=== PATIENT | male | born 1960 | race Caucasian/White ===

== ENCOUNTER 2019-06-15 11:07 | Inpatient (IN) | payer MEDICARE, SELFPAY ==
[2019-06-15] VITALS (10 sets, daily range): BP systolic 105–167; BP diastolic 52–120; PULSE 86–123; RESP 16–22; TEMP 36.6–37; O2SAT 90–100; BMI 16.2; BMI 23.0; BMI 17.9
--- NOTE | 2019-06-15 11:04 | ECG_ITS ---
APPROVED REPORT Exam: Resting ECG HR:125 bpm ECG Measurements Heart Rate 125 AXES MI 154 P 84 QRSd 70 QRS 72 QT 312 T 76 QTc 450 <Conclusion> Sinus tachycardia Right atrial enlargement Nonspecific ST and T wave abnormality Abnormal ECG Electronically signed by : Isaías Martinez, 06/17/2019 21:01:32
--- NOTE | 2019-06-15 11:14 | CT_ITS ---
PROCEDURE: CT ABDOMEN PELVIS WO CON CLINICAL INDICATION: abd pain Abdominal pain and distension with nausea COMPARISON: No exams were available for comparison TECHNIQUE: Axial images obtained with sagittal and coronal reformats. All CT scans at the facility use one or more dose reduction, viz: automated exposure control, ma/kV adjustment per patient size (including targeted exams where dose is matched to indication, i.e. head), or iterative reconstruction technique. FINDINGS: LOWER THORAX: See chest CT report ABDOMEN & PELVIS: There is marked gastric distension with fluid-filled stomach with an air-fluid level and some hyperdensity in the posterior aspect of the stomach. The there is also severe distension of the duodenum involving the bulb and descending portion of the duodenum and transverse duodenum to the midline of the abdomen. The distal portion of the duodenum, jejunum and small bowel are nondistended. The gallbladder has an unremarkable appearance. The pancreas is compressed by the distended stomach. There is stranding of the fat in the left upper quadrant along the tail the pancreas and superior to the left kidney and along the medial aspect of the spleen. The medial margin of the spleen is somewhat obscured.. No adrenal mass evident. No renal calculi or hydronephrosis. The appendix is not identified. There is a Ansari catheter present within the urinary bladder with thickened bladder wall having some irregular contour. No acute bony anomalies. IMPRESSION: 1. There is marked gastric and duodenal distension to the level of the distal aspect of the 3rd portion of the duodenum as the duodenum passes midline consistent with high-grade obstruction at this area. 2. The pancreas is compressed by the stomach. There is stranding of the fat in the left upper quadrant posterior to the pancreatic tail and superior to the left kidney and along the medial margin of the spleen. Pancreatitis could cause this finding. Underlying infection/inflammation is also consideration. 3. Ansari catheter in place. The urinary bladder wall is somewhat irregularly thickened which may be seen with cystitis or neoplasm. There are multiple unopacified bowel loops in the pelvis which could obscure or mimic pathology. Follow-up exam with IV and oral contrast may provide further evaluation. The Dictated by: Shaggy Alexandre MD 06/15/2019 12:46 Electronically signed by Shaggy Alexandre MD in [facility] 06/15/2019 12:46
--- NOTE | 2019-06-15 11:14 | CT_ITS ---
PROCEDURE: CT CHEST WO CON CLINICAL INDICATION: pain Chest pressure pain and soreness COMPARISON: CT ABDOMEN PELVIS WO CON from 06/15/2019 TECHNIQUE: Axial images obtained with sagittal and coronal reformats. All CT scans at the facility use one or more dose reduction, viz: automated exposure control, ma/kV adjustment per patient size (including targeted exams where dose is matched to indication, i.e. head), or iterative reconstruction technique. FINDINGS: HEART AND MEDIASTINAL STRUCTURES: There are coronary artery calcifications.. There is marked gastric distension. Please see abdomen CT report for further lucent a keyes. There is also moderate distension of the fluid-filled esophagus. No mediastinal or hilar mass or adenopathy. LUNGS AND PLEURAL SPACES: COPD with scattered areas of scarring with centrilobular emphysema. Irregular opacities are present in the lung apices, left upper lobe posteriorly in the subpleural region, and in the left lower lobe posterior medially. There is some linear density in the distal trachea which could be due to some mucous. No lobar consolidation or collapse. 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 UPPER ABDOMEN: See abdomen report ADDITIONAL FINDINGS: No other significant abnormalities. IMPRESSION: 1. COPD with centrilobular emphysema and scattered areas of scarring/pulmonary fibrotic changes. 2. Linear transverse density in the distal esophagus possibly related to a strand of mucous 3. Severe gastric distension along with fluid-filled distended esophagus. Dictated by: Shaggy Alexandre MD 06/15/2019 12:38 Electronically signed by Shaggy Alexandre MD in [facility] 06/15/2019 12:38
[2019-06-15 11:33] LABS: Chloride 88 mmol/L (98-107); Sodium 136 mmol/L (136-145)
[2019-06-15 11:34] LABS: Potassium 3.3 mmoL/L (3.5-5.1)
[2019-06-15 11:36] LABS: Alanine Aminotransferase 29 U/L (12-78); Alkaline Phosphatase 87 U/L (38-126); Amylase 279 U/L (30-110); Anion Gap 25.3 mEq/L (5-15); Aspartate Amino Transferase 34 U/L (17-59); Bilirubin,Total 0.5 mg/dl (0.2-1.3); Blood Urea Nitrogen 38 mg/dl (9-20); Calcium 10.2 mg/dl (8.4-10.2); Carbon Dioxide 26 mmol/L (22.0-30.0); Creatinine Clearance Estimated 26 mL/min (50-200); Estimated Glomerular Filt Rate 26 ml/min (>60); GFR (African American) 31 ML/MIN (>60); Glucose 231 mg/dl (74-100)
[2019-06-15 11:37] LABS: Albumin Level 5.1 g/dl (3.5-5.0); Albumin/Globulin Ratio 1.5 (1.1-1.8); Globulin 3.5 g/dL (1.3-3.2); Total Protein,Serum 8.6 g/dl (6.3-8.2)
[2019-06-15 11:39] LABS: Basophils # 0.1 K/mm3 (0-0.2); Basophils % 0.4 % (0.1-2.0); Eosinophils # 0.2 K/mm3 (0.0-0.4); Eosinophils % 0.9 % (0.1-12.0); Ethyl Alcohol < 10 mg/dl (0-10); Hematocrit 40.7 % (42.0-52.0); Hemoglobin 13.6 g/dL (14.1-18.0); Lymphocytes % 5.7 % (10-50); Mean Corpuscular HGB Conc 33.5 g/dL (31.8-35.4); Mean Corpuscular Hemoglobin 35.6 pg (27.0-31.2); Mean Corpuscular Volume 106.3 fl (80-94); Mean Platelet Volume 9.6 fl (7.4-10.4); Monocytes # 0.9 K/mm3 (0.1-1.0); Monocytes % 5.1 % (1.7-9.3); Neutrophils # 15.3 K/mm3 (1.8-7.8); Neutrophils % 87.9 % (37.0-80.0); Platelet Count 329 K/mm3 (142-424); Red Blood Count 3.83 M/mm3 (4.60-6.20); Red Cell Distribution Width 13.2 % (11.5-17.5); White Blood Count 17.4 K/mm3 (4.8-10.8)
[2019-06-15 11:40] LABS: Lactic Acid 4.5 mmol/L (0.7-2.1)
--- NOTE | 2019-06-15 11:40 | PC.NURSE ---
NOTIFIED OF PT MEETING CRITERIA FOR SEPTIC SHOCK, STATED TO INITIATE FLUID BOLUS
[2019-06-15 11:42] LABS: C-Reactive Protein 4.2 mg/L (0-4)
[2019-06-15 11:43] LABS: MANUAL DIFFERENTIAL MANUAL DIFFERENTIAL (MANUAL DIFF)
[2019-06-15 11:44] LABS: Lipase 2371 U/L (23-300)
[2019-06-15 11:49] LABS: Microscopic, Urine URINE MICROSCOPIC (MICROSCOPIC)
[2019-06-15 11:51] LABS: Troponin I 0.02 ng/ml (0.00-0.034)
[2019-06-15 11:51] LABS: Appearance,Urine SL CLOUDY (Clear); Blood, Urine Negative (Negative); Color,Urine YELLOW (Yellow); Glucose,Urine (UA) Negative (Negative); Ketones,Urine Negative (Negative); Leukocyte Esterase,Urine Negative (Negative); Nitrate,Urine Negative (Negative); PH,Urine 5.5 (5.0-8.5); Protein,Urine 2+ (Negative); Specific Gravity, Urine >= 1.030 (1.005-1.030); Urobilinogen,Urine 0.2 EU/dl (0.2)
[2019-06-15 11:55] LABS: Lymphocytes % 7 % (10-50); Monocytes % 8 % (2-9); Neutrophils % 85 % (42-76); Total Cells Counted 100
[2019-06-15 11:56] LABS: Macrocytosis 2+
[2019-06-15 11:58] LABS: Anisocytosis 2+; Platelet Estimate Normal
[2019-06-15 12:01] LABS: Erythrocyte Sedimentation Rate 11 mm/hr (0-20)
[2019-06-15 12:02] LABS: Amphetamine/Metha Screen,Urine Negative ng/ml (<1000)
[2019-06-15 12:03] LABS: Barbiturates Screen,Urine Positive ng/ml (<200); Benzodiazepines Screen,Urine Negative ng/ml (<200)
--- NOTE | 2019-06-15 12:03 | HMH.EDABDPAI ---
ED Disposition Clinical Impression: Acute pancreatitis, Sepsis, Abdominal pain Disposition: Admitted As Inpatient Condition on Discharge: Good Instructions: DI for Acute Abdomen Referrals: Tereso Grant [Primary Care Provider] - - Critical Care Critical Care Time: Yes (20) Attestation: On 06/15/19, the high probability of a clinically significant, sudden or life threatening deterioration of the following system(s) required my full and direct attention, intervention and personal management. The time I documented below is in addition to time spent performing reported procedures but includes the following listed in this critical care notation. Total Critical Care Time: 20 Vital system(s) involved:: Shock (Septic) My critical care processes included: Assessment & monitoring of V/S, Initial and Re-exams, Data Review/Interpretation, Coordinating Care, Medication Orders and management, Documentation Medical Decision Making - Medical Records Medical records reviewed: Yes: I reviewed the patient's medical records. - Chris Inquiry Pt receiving controlled substance: No Vital Signs: 06/15/19 11:08 06/15/19 11:38 06/15/19 12:38 Temperature 98.0 F Temperature Source Oral Pulse Rate [Right Radial] 113 H 113 H 119 H Respiratory Rate 18 22 22 Blood Pressure [Right Arm] 135/98 H 136/115 H 154/104 H Blood Pressure Mean [Right Arm] 110 122 120 Blood Pressure Source [Right Arm] Automatic Cuff Automatic Cuff Automatic Cuff Blood Pressure Position [Right Arm] Sitting Sitting Sitting 02 Sat by Pulse Oximetry 96 96 100 Oxygen Delivery Method Room Air Room Air 06/15/19 13:14 Temperature Temperature Source Pulse Rate [Right Radial] 123 H Respiratory Rate 20 Blood Pressure [Right Arm] 167/120 H Blood Pressure Mean [Right Arm] 135 Blood Pressure Source [Right Arm] Automatic Cuff Blood Pressure Position [Right Arm] Sitting 02 Sat by Pulse Oximetry 96 Oxygen Delivery Method - Lab Data Lab results reviewed: Yes: I reviewed the patient's lab results. Lab Results 06/15/19 11:15: WBC 17.4 H, RBC 3.83 L, Hgb 13.6 L, Hct 40.7 L, MCV 106.3 H, MCH 35.6 H, MCHC 33.5, RDW 13.2, Plt Count 329, MPV 9.6, Neut % (Auto) 87.9 H, Lymph % (Auto) 5.7 L, Dawson % (Auto) 5.1, Eos % (Auto) 0.9, Baso % (Auto) 0.4, Neut # (Auto) 15.3 H, Lymph # (Auto) 1.0, Dawson # (Auto) 0.9, Eos # (Auto) 0.2, Baso # (Auto) 0.1, Total Counted 100, Neutrophils % (Manual) 85 H, Lymphocytes % (Manual) 7 L, Monocytes % (Manual) 8, Platelet Estimate Normal, RBC Morphology Not Reportable, Anisocytosis 2+, Macrocytosis 2+, ESR 11 06/15/19 11:15: Sodium 136, Potassium 3.3 L, Chloride 88 L, Carbon Dioxide 26, Anion Gap 25.3 H, BUN 38 H, Creatinine 2.60 H, Estimated Creat Clear 26, Estimated GFR 26 L, Est GFR ( Amer) 31 L, Glucose 231 H, Calcium 10.2, Total Bilirubin 0.5, AST 34, ALT 29, Alkaline Phosphatase 87, Troponin I 0.02, C-Reactive Protein 4.2 H, Total Protein 8.6 H, Albumin 5.1 H, Globulin 3.5 H, Albumin/Globulin Ratio 1.5, Amylase 279 H, Lipase 2371 H 06/15/19 11:15: Lactate 4.5 H 06/15/19 11:15: Plasma/Serum Alcohol < 10 06/15/19 11:40: Urine Color Yellow, Urine Appearance Sl cloudy, Urine pH 5.5, Ur Specific [place] >= 1.030, Urine Protein 2+, Urine Glucose (UA) Negative, Urine Ketones Negative, Urine Blood Negative, Urine Nitrate Negative, Urine Bilirubin Negative, Urine Urobilinogen 0.2, Ur Leukocyte Esterase Negative, Urine RBC None, Urine WBC Occasional, Ur Squamous Epith Cells Occasional, Amorphous Sediment 1+, Urine Bacteria Trace, Hyaline Casts 3-5 06/15/19 11:40: Urine Opiates Screen Negative, Urine Methadone Screen Negative, Ur Barbituates Screen Positive H, Ur Phencyclidine Scrn Negative, Ur Amphetamines Screen Negative, U Benzodiazepines Scrn Negative, Urine Cocaine Screen Negative, U Marijuana (THC) Screen Negative Result diagrams: 06/15/19 11:15 06/15/19 11:15 Orders (Tests/Meds): ED MEDICATIONS Generic Name Dose Route Start Last Admin Trade
[2019-06-15 12:04] LABS: Cannabinoid Screen,Urine Negative ng/ml (<50)
[2019-06-15 12:05] LABS: Cocaine Screen,Urine Negative ng/ml (<300); Methadone Screen,Urine Negative ng/ml (<300)
[2019-06-15 12:06] LABS: Opiate Screen,Urine Negative ng/ml (<300); Phencyclidine Screen,Urine Negative ng/ml (<25)
[2019-06-15 12:08] LABS: Bilirubin,Urine Negative (Negative)
[2019-06-15 12:13] LABS: Amorphous Sediment,Urine 1+ /lpf; Bacteria,Urine Trace /lpf; Squamous Epithelial Cell,Urine Occasional #/hpf (0-5); WBC,Urine Occasional #/hpf (0-3)
--- NOTE | 2019-06-15 13:06 | XR_ITS ---
PROCEDURE: XR CHEST AP CLINICAL HISTORY: NG PLACEMENT Gastric distension COMPARISON: CT ABDOMEN PELVIS WO CON from 06/15/2019 CT CHEST WO CON from 06/15/2019 FINDINGS: The cardiomediastinal silhouette and pulmonary vascularity are within normal limits. COPD with fibrotic changes. Old right sided rib fractures Nasogastric tube has been inserted. The tip is in good position in the region of the body of the stomach. IMPRESSION: NG tube tip in good position in the region of the body of the stomach Dictated by: Shaggy Alexandre MD 06/15/2019 13:21 Electronically signed by Shaggy Alexandre MD in [place] 06/15/2019 13:21
--- NOTE | 2019-06-15 13:09 | PC.NURSE ---
Sepsis bolus complete at this time
--- NOTE | 2019-06-15 13:40 | PC.NURSE ---
CALLED CHARGE NURSE FOR BED ASSIGNMENT. PATIENT WILL BE ADMITTED TO ROOM 203. ER STAFF NOTIFIED AT THIS TIME
--- NOTE | 2019-06-15 14:18 | PC.NURSE ---
MD SPEAKING WITH DR BASS, SURGEON [employer] D[employer], AT THIS TIME.
--- NOTE | 2019-06-15 14:20 | PC.NURSE ---
Dr Elias on with Dr bell
--- NOTE | 2019-06-15 14:29 | PC.NURSE ---
Dr Elias speaking with Dr Paige.
--- NOTE | 2019-06-15 15:01 | XR_ITS ---
PROCEDURE: XR CHEST AP CLINICAL HISTORY: resert ng NG tube placement COMPARISON: XR CHEST AP from 06/15/2019 CT CHEST WO CON from 06/15/2019 FINDINGS: NG tube tip is in the region of the body of the stomach. IMPRESSION: NG tube tip in the region of the body of the stomach Dictated by: Shaggy Alexandre MD 06/15/2019 15:40 Electronically signed by Shaggy Alexandre MD in [facility] 06/15/2019 15:40
[2019-06-15 15:27] LABS: Reflex Lactic Add Lactic Reflex
[2019-06-15 15:54] LABS: Lactic Acid Follow Up (RFLX 1) 1.1 mmol/L (0.7-2.1)
[2019-06-15 16:04] LABS: Troponin I 0.03 ng/ml (0.00-0.034)
--- NOTE | 2019-06-15 17:57 | PC.NURSE ---
Pt was a new admit from the ER this shift. 16 F NG tube located in LT nare noted to be 65 and attached to continuous low wall suction. 16 F F/C patent and draining at bedside. Pt has had complaints of nausea and pain since arrival to the unit. Pt was medicated with Zofran and Dilaudid per MAR and has had favorable results. IV sites are as follows: 18 G LT forearm with NS infusing @ 125ML/HR, 20 G RT AC, 20 G LT AC. Call light within reach. Will continue to monitor.
--- NOTE | 2019-06-16 02:53 | PC.NURSE ---
Pt presently sleeping, mentioned several times he wished he brought his home meds, because I'd be sleeping right now if I did. Discussed using home meds under certain restrictions being observation and pt voiced understanding of not using home meds, however he spoke of it again. I advised, no home meds are needed for this hospitalization and don't ask anyone to bring them because we would have to ask them to take them back home. Advised speaking to PCP concerning reordering home meds. Diluadid given x 2 thus far, pt ask tech about getting more pain meds, I went in to discuss pain med but found pt sleeping. NG with dark gastric fluids noted, abrams cath patent and draining to bedside by gravity with clear, yellow urine noted. Vital signs stable and remains afebrile, monitoring continues.
[2019-06-16 03:45] VITALS: BP 153/84; PULSE 82; RESP 17; TEMP 36.8; O2SAT 92
[2019-06-16 05:03] VITALS: BMI 17.9
[2019-06-16 07:22] LABS: Basophils % 0.1 % (0.1-2.0); Eosinophils # 0.1 K/mm3 (0.0-0.4); Eosinophils % 0.4 % (0.1-12.0); Hematocrit 29.8 % (42.0-52.0); Lymphocytes # 1.2 K/mm3 (0.7-4.5); Lymphocytes % 10.1 % (10-50); Mean Corpuscular Hemoglobin 34.5 pg (27.0-31.2); Mean Corpuscular Volume 104.7 fl (80-94); Mean Platelet Volume 8.8 fl (7.4-10.4); Monocytes # 0.9 K/mm3 (0.1-1.0); Monocytes % 7.2 % (1.7-9.3); Neutrophils # 9.9 K/mm3 (1.8-7.8); Neutrophils % 82.3 % (37.0-80.0); Platelet Count 230 K/mm3 (142-424); Red Blood Count 2.84 M/mm3 (4.60-6.20); Red Cell Distribution Width 13.2 % (11.5-17.5); White Blood Count 12.1 K/mm3 (4.8-10.8)
[2019-06-16 07:29] LABS: Alanine Aminotransferase 11 U/L (12-78); Albumin Level 3.4 g/dl (3.5-5.0); Albumin/Globulin Ratio 1.4 (1.1-1.8); Alkaline Phosphatase 50 U/L (38-126); Anion Gap 8.9 mEq/L (5-15); Aspartate Amino Transferase 26 U/L (17-59); Bilirubin,Total 0.2 mg/dl (0.2-1.3); Blood Urea Nitrogen 33 mg/dl (9-20); Carbon Dioxide 27 mmol/L (22.0-30.0); Chloride 103 mmol/L (98-107); Creatinine Clearance Estimated 46 mL/min (50-200); Estimated Glomerular Filt Rate 57 ml/min (>60); GFR (African American) 69 ML/MIN (>60); Globulin 2.4 g/dL (1.3-3.2); Glucose 84 mg/dl (74-100); Lipase 216 U/L (23-300); Sodium 136 mmol/L (136-145); Total Protein,Serum 5.8 g/dl (6.3-8.2)
[2019-06-16 07:31] LABS: Potassium 2.9 mmoL/L (3.5-5.1)
[2019-06-16 07:32] LABS: Calcium 8.5 mg/dl (8.4-10.2)
[2019-06-16 07:38] VITALS: BP 134/66; PULSE 66; RESP 20; TEMP 37.4; O2SAT 96
[2019-06-16 09:12] VITALS: PULSE 66; RESP 20; O2SAT 96
--- NOTE | 2019-06-16 09:31 | P.CONPHA_ITS ---
[facility] Pharmacy VTE Monitoring - Patient Demographics Admission date: 06/15/19 Report Date: 06/16/19 Time: 09:31 Allergies/Adverse Reactions: Patient Allergies diphenhydramine [From Benadryl] Allergy (Verified 06/15/19 11:13) Height: 1.7 m Weight: 51.71 kg Patient Problems: Current Active Problems Acute pancreatitis (Acute) Sepsis (Acute) Abdominal pain (Acute) - VTE Risk Labs: VTE Related Lab Results Hgb 10.0 g/dL (14.1-18.0) L D 06/16/19 07:08 Hct 29.8 % (42.0-52.0) L 06/16/19 07:08 Plt Count 230 K/mm3 (142-424) D 06/16/19 07:08 BUN 33 mg/dl (9-20) H 06/16/19 07:08 Creatinine 1.30 mg/dl (0.66-1.25) H D 06/16/19 07:08 Estimated Creat Clear 46 mL/min (50-200) 06/16/19 07:08 Was VTE Risk Assessment Performed: Yes VTE Score: 2 VTE Risk Level: Very Low Risk - Prophylaxis VTE Prophylaxis Ordered?: Yes Types of VTE Prophylaxis: TEDS Knee High Location of Applied Device: Bilateral Lower Extremeties
--- NOTE | 2019-06-16 09:46 | HMH.HP ---
*Admission Date: 06/15/19 *Chief complaint: Abdominal pain *History of present illness: Mr. Renae is a 58-year-old white male who presented to the emergency room yesterday with a 3 to 4-day history of progressively worsening abdominal pain, abdominal distention with nausea and vomiting. It was initially thought to have an acute abdomen. His amylase and lipase was elevated. Urgent CT scan showed stranding around the tail the pancreas consistent with some pancreatitis but the more impressive finding was marked distention of his stomach with apparent obstruction in the mid duodenum. An NG tube was placed in the emergency room with return of proximately 6 L of gastric contents which markedly relieved his symptoms. Additional pertinent findings on his labs showed an elevated white count of 17,000. BUN and creatinine were elevated. Lactic acid was 4.5. Glucose was elevated at 213. His chest x-ray showed some chronic changes consistent with COPD and evidence of several old rib fractures on the right. He was admitted with continuous NG drainage to low wall suction, IV fluid hydration, pain management and surgical consultation. At the time of my exam this morning, he is more comfortable but still having mid and upper abdominal pain. He has had no bowel movement. He has no history of GI problems but does note he takes Prilosec at home and is not sure why. No history of ulcer disease. No recent weight loss. Mr. Renae lives in [facility] and was visiting with his sister in [place] when his symptoms started. He is disabled from chronic back pain. He has a history of chronic headaches and anxiety. [facility] History Medical History: Reports:: Anxiety, Gastroesophageal Reflux Disease(GERD), Lung Disease (COPD) Denies:: Cancer, Diabetes Mellitus Type 1, Diabetes Mellitus Type 2, Gastrointestinal Bleed, MRSA, Renal Insufficiency *Have you ever received a pneumonia vaccine?: No *Have you received a flu vaccine this season?: No Other Medical History: Reports: Arthritis, Other (Chronic back pain, chronic headache syndrome) Other Surgeries: Yes: No Previous Surgery Amputation: No Fractures: No - *Social History Educational Level: Completed High School Smoking Status: Current every day smoker Tobacco Type: cigarettes # Packs/Day (cigarettes): 1 Alcohol Intake: current Alcohol Intake Frequency:: holidays/special occasions only *Occupational Status:: disabled (Work-related back injury) Housing: house Household Members: family *Travel in the last 8 weeks: None Family Hx:: Heart Attack, Hypertension Review of Systems - Constitutional Denies body ache(s), Denies chills - Eyes Denies change in vision - ENT Denies difficulty swallowing - *Cardiovascular Denies chest pain with activity, Denies shortness of breath, Denies rapid, pounding, or irregular heartbeat - *Respiratory Reports cough, Reports coughing up blood, Denies shortness of breath - *Gastrointestinal Reports other (See HPI) - *Genitourinary Denies difficulty urinating, Denies painful urination, Denies blood in urine - *Musculoskeletal Reports other (Chronic back pain) - Integumentary/Breasts Denies yellowing of the skin - *Neurologic Reports headache(s) (Chronic), Denies dizziness - Psychiatric Reports anxiety - Endocrine Denies increased thirst, Denies increased urination - Hematologic/Lymphatic Denies easy bruising Meds Home Medications Medication Instructions Recorded Confirmed Type Acetaminophen [Tylenol 325mg 650 mg PO NEEDED PRN 06/15/19 06/15/19 History Tablet] Buprenorphine HCl/Naloxone HCl 1 each SL BID 06/15/19 06/15/19 History [Suboxone 2 mg-0.5 mg Sl Film] Butalbital/Aspirin/Caffeine 1 each PO DAILY 06/15/19 06/15/19 History [Fiorinal 50-325-40 mg Capsule] Fluvoxamine Maleate 100 mg PO DAILY 06/15/19 06/15/19 History Ibuprofen [Motrin 800mg Tab] 800 mg PO Q6HP PRN 06/15/19 06/15/19 History LORazepam [Lorazepam 1mg Tablet] 1 m
--- NOTE | 2019-06-16 11:45 | HMH.PHAINT ---
HOME MEDICATIONS RECONCILED FROM FILL LIST FROM [facility]. VERIFIED SUBOXONE DOSE WITH [facility] IN [place]. PRESCRIBER: RON PAN [phone]
[2019-06-16 15:52] VITALS: BP 157/87; PULSE 65; RESP 16; TEMP 36.9; O2SAT 97
[2019-06-16 16:48] LABS: Potassium 3.5 mmoL/L (3.5-5.1)
--- NOTE | 2019-06-16 16:57 | PC.NURSE ---
Pt has been pleasant and cooperative this shift. Pt has received 2 runs of IV Potassium this shift due to critically low Potassium result this AM. 16 F NG tube located in LT nare noted to be at 65 and attached to continuous low wall suction. 16 F F/C patent and draining at bedside. Pt has had complaints of nausea and pain this shift and was medicated with Zofran and Dilaudid per MAR with favorable results. IV sites are as follows: 18 G LT forearm with NS 40 K+ infusing @ 100 ML/HR, 20 G RT AC, 20 G LT AC. VSS. Call light within reach. Will continue to monitor.
[2019-06-16 20:00] VITALS: BP 159/85; PULSE 65; RESP 17; TEMP 36.7; O2SAT 98
--- NOTE | 2019-06-16 20:18 | HMH.GSCON ---
*Admission Date: 06/15/19 *Reason for consult:: Pancreatitis. Abdominal pain. High-grade bowel obstruction. *History of present illness: Mr. Renae is a 58-year-old male that presents to [facility] with complaints of nausea and acute onset abdominal pain. Abdominal distention noted. No significant emesis. Bowel movement reported in the past 48 hours. Continues to pass flatus. Presented to [facility] ED; CT completed demonstrated marked gastric distention and proximal duodenal distention without clear lesion contributing to obstruction. Nasogastric tube placed with over 6 L of output in a relatively short period of time. Patient presented with positive indicators of SIRS; tachycardia, tachypnea, elevated WBC. Patient reported significant improvement after nasogastric decompression. Admitted for further observation. Additional imaging has included CT Chest with findings consistent of COPD/emphysema. No free air. No free fluid. Additional chest x-ray today as demonstrated similar findings and without pneumoperitoneum. WBC has improved from 17,000-12,000. Initially elevated lipase has returned to normal. Patient laboratory findings include lactic acidosis that has now resolved and YAZMIN showing improvement. Mr. Renae reports a relatively unremarkable medical history. No prior hospitalizations. Primary medical problem is chronic back pain from work-related injury that has left him disabled and unable to maintain employment. No prior abdominal surgery, however, Mr. Del Rosario indicates that he has had esophageal dilation in the past. Overall, no weight loss. No fever or chills. Does report early satiety in the past year with modification of his diet and food intake to be mostly in the evening. Satiety improves with laying flat. No emesis of undigested food. No other complaints. Review of Systems - Review of Systems Review of systems:: pertinent systems reviewed and negative unless documented below - Constitutional Reports daytime sleepiness, Reports lack of energy - *Gastrointestinal Reports feeling full early - *Musculoskeletal Reports joint pain, Reports back pain, Reports muscle weakness, Reports neck pain - *Neurologic Reports headache(s) (Chronic), Denies dizziness [facility] History Medical History: Reports:: Anxiety, Gastroesophageal Reflux Disease(GERD), Hypertension, Lung Disease (COPD) Denies:: Cancer, Diabetes Mellitus Type 1, Diabetes Mellitus Type 2, Gastrointestinal Bleed, MRSA, Renal Insufficiency *Have you ever received a pneumonia vaccine?: No *Have you received a flu vaccine this season?: No Other Medical History: Reports: Anemia, Arthritis, Other (Chronic back pain, chronic headache syndrome) Other Surgeries: Yes: No Previous Surgery Amputation: No Fractures: No - *Social History Educational Level: Completed High School Smoking Status: Current every day smoker Tobacco Type: cigarettes # Packs/Day (cigarettes): 1 Alcohol Intake: current Alcohol Intake Frequency:: holidays/special occasions only *Occupational Status:: disabled (Work-related back injury) Housing: house Household Members: family *Travel in the last 8 weeks: None - Psychiatric History Pschychiatric History:: Reports:: Anxiety Family Hx:: Heart Attack, Hypertension Meds Home Medications Medication Instructions Recorded Confirmed Type Acetaminophen [Tylenol 325mg 650 mg PO NEEDED PRN 06/15/19 06/15/19 History Tablet] Butalbital/Aspirin/Caffeine 1 - 2 tab PO Q6HP PRN 06/15/19 06/16/19 History [Fiorinal 50-325-40 mg Capsule] Fluvoxamine Maleate 150 mg PO DAILY 06/15/19 06/16/19 History Ibuprofen [Motrin 800mg Tab] 800 mg PO TID PRN 06/15/19 06/16/19 History LORazepam [Lorazepam 1mg Tablet] 1 mg PO Q4HP PRN 06/15/19 06/16/19 History Omeprazole [Omeprazole 40mg 40 mg PO DAILY 06/15/19 06/15/19 History Capsule] Topiramate [Topamax 100mg tablet] 200 mg PO BID 06/15/19 06/16/19 History Bupren
[2019-06-17] VITALS (19 sets, daily range): BP systolic 135–188; BP diastolic 65–93; PULSE 48–64; RESP 16–20; TEMP 36.7–37.4; O2SAT 93–100; BMI 17.9
--- NOTE | 2019-06-17 06:06 | PC.NURSE ---
Pt requested PRN pain medication 4 times this shift. PRN lorazepam given per request with pt sleeping a couple hours thereafter. Dr Montalvo in to see pt, allowed popsicles and ice chips until midnight then NPO. Pt enjoyed several popsicles reporting it helped his throat to not hurt so much. Intermittent sleep, dozing off several times following med administration. Encouraged pt to get oob, however pt did not wish to, but reported he would be getting up today because if he didn't wouldn't be able to move at all. Vital signs stable, afebrile. Both AC IV's leaked and were removed. #18 in LFA infusing well with no problems. Pt spoke with family on phone several times last night. Removed PARVEEN hose per pt request, reporting hurting his legs. Pt is anxious to have tests or whatever is going to happen today, reports anxious to get NG tube out and get back to normal. Remained safe, call light w/i reach, monitoring continues.
[2019-06-17 06:12] LABS: Basophils % 0.1 % (0.1-2.0); Eosinophils % 0.3 % (0.1-12.0); Hematocrit 31.1 % (42.0-52.0); Hemoglobin 10.3 g/dL (14.1-18.0); Lymphocytes # 1.8 K/mm3 (0.7-4.5); Lymphocytes % 14.4 % (10-50); Mean Corpuscular HGB Conc 33.1 g/dL (31.8-35.4); Mean Corpuscular Hemoglobin 34.9 pg (27.0-31.2); Mean Corpuscular Volume 105.4 fl (80-94); Mean Platelet Volume 9.2 fl (7.4-10.4); Monocytes # 0.9 K/mm3 (0.1-1.0); Monocytes % 7.3 % (1.7-9.3); Neutrophils # 9.5 K/mm3 (1.8-7.8); Neutrophils % 77.8 % (37.0-80.0); Platelet Count 232 K/mm3 (142-424); Red Blood Count 2.95 M/mm3 (4.60-6.20); Red Cell Distribution Width 13.1 % (11.5-17.5); White Blood Count 12.2 K/mm3 (4.8-10.8)
[2019-06-17 06:28] LABS: Chloride 109 mmol/L (98-107); Potassium 3.4 mmoL/L (3.5-5.1); Sodium 139 mmol/L (136-145)
[2019-06-17 06:31] LABS: Anion Gap 9.4 mEq/L (5-15); Blood Urea Nitrogen 26 mg/dl (9-20); Calcium 8.7 mg/dl (8.4-10.2); Carbon Dioxide 24 mmol/L (22.0-30.0); Creatinine Clearance Estimated 60 mL/min (50-200); Estimated Glomerular Filt Rate 77 ml/min (>60); GFR (African American) 94 ML/MIN (>60); Glucose 56 mg/dl (74-100)
--- NOTE | 2019-06-17 08:37 | P.PN_ITS ---
Subjective Patient reports: no new complaints Exam Vital signs and Labs for Last 24 Hours: Temp Pulse Resp BP Pulse Ox 98.5 F 50 L 16 150/71 H 99 06/17/19 08:00 06/17/19 08:00 06/17/19 08:00 06/17/19 08:00 06/17/19 08:00 Laboratory Results - last 24 hr 06/16/19 16:30: Potassium 3.5 D 06/17/19 05:46: WBC 12.2 H, RBC 2.95 L, Hgb 10.3 L, Hct 31.1 L, MCV 105.4 H, MCH 34.9 H, MCHC 33.1, RDW 13.1, Plt Count 232, MPV 9.2, Neut % (Auto) 77.8, Lymph % (Auto) 14.4, [place] % (Auto) 7.3, Eos % (Auto) 0.3, Baso % (Auto) 0.1, Neut # (Auto) 9.5 H, Lymph # (Auto) 1.8, [place] # (Auto) 0.9, Eos # (Auto) 0.0, Baso # (Auto) 0.0 06/17/19 05:46: Sodium 139, Potassium 3.4 L, Chloride 109 H, Carbon Dioxide 24, Anion Gap 9.4, BUN 26 H, Creatinine 1.00 D, Estimated Creat Clear 60, Estimated GFR 77, Est GFR ( Amer) 94 D, Glucose 56 L D, Calcium 8.7 I & O for Last 24 hours: Intake & Output 06/14/19 06/15/19 06/16/19 06/17/19 11:59 11:59 11:59 11:59 Intake Total 4070 / 4070 2791 / 2791 Output Total 1250 / 1250 2100 / 2100 Balance 2820 / 2820 691 / 691 Weight 130 lb 114 lb 113 lb 15.664 oz - *Routine Abdominal Exam Present: soft. Absent: tenderness Progress Note: A&P (1) Acute abdominal pain Status: Acute Current Visit: Yes (2) Acute pancreatitis Status: Acute Current Visit: Yes (3) Duodenal obstruction Status: Acute Assessment and plan: Plan for EGD today. Current Visit: Yes (4) Acute renal insufficiency Status: Acute Current Visit: Yes (5) Hypokalemia Status: Acute Current Visit: Yes (6) COPD (chronic obstructive pulmonary disease) Status: Acute Current Visit: Yes (7) Tobacco abuse Status: Acute Current Visit: Yes (8) Chronic back pain Status: Acute Current Visit: Yes (9) Chronic mixed headache syndrome Status: Acute Current Visit: Yes (10) Anxiety disorder Status: Acute Current Visit: Yes
--- NOTE | 2019-06-17 09:08 | HMH.ACPN2 ---
<Anisha Mohan - Last Filed: 06/17/19 09:08> Internal Medicine - PN: Subj *Date: 06/17/19 *Time: 09:08 Interval history: Patient states he was able to sleep a little last night. He enjoyed the popsicles. He has had significant NG drainage. He has had some nausea but no vomiting. He states that abdominal pain is better. He still continues with a Ansari catheter to bedside drainage. He is currently n.p.o. for possible EGD this morning. He denies chest pain and shortness of breath. Laboratory data this morning shows a white blood cell count of 12,200 with a hemoglobin of 10.3 and hematocrit of 31.1. Blood chemistries show improved potassium at 3.4. Renal function has improved. Exam Vital signs and Labs for Last 24 Hours: Temp Pulse Resp BP Pulse Ox 98.5 F 50 L 16 150/71 H 99 06/17/19 08:00 06/17/19 08:00 06/17/19 08:00 06/17/19 08:00 06/17/19 08:00 Laboratory Results - last 24 hr 06/16/19 16:30: Potassium 3.5 D 06/17/19 05:46: WBC 12.2 H, RBC 2.95 L, Hgb 10.3 L, Hct 31.1 L, MCV 105.4 H, MCH 34.9 H, MCHC 33.1, RDW 13.1, Plt Count 232, MPV 9.2, Neut % (Auto) 77.8, Lymph % (Auto) 14.4, [place] % (Auto) 7.3, Eos % (Auto) 0.3, Baso % (Auto) 0.1, Neut # (Auto) 9.5 H, Lymph # (Auto) 1.8, [place] # (Auto) 0.9, Eos # (Auto) 0.0, Baso # (Auto) 0.0 06/17/19 05:46: Sodium 139, Potassium 3.4 L, Chloride 109 H, Carbon Dioxide 24, Anion Gap 9.4, BUN 26 H, Creatinine 1.00 D, Estimated Creat Clear 60, Estimated GFR 77, Est GFR ( Amer) 94 D, Glucose 56 L D, Calcium 8.7 I & O for Last 24 hours: Intake & Output 06/14/19 06/15/19 06/16/19 06/17/19 11:59 11:59 11:59 11:59 Intake Total 4070 / 4070 2791 / 2791 Output Total 1250 / 1250 2099 / 2099 Balance 2820 / 2820 691 / 691 Weight 130 lb 114 lb 113 lb 15.664 oz - Constitutional no acute distress, thin, chronically ill appearing - *Routine Respiratory Exam Present: CTA bilaterally (Anteriorly and posteriorly) - *Routine Cardiovascular Exam Present: RRR - *Routine Abdominal Exam Present: soft, tenderness (Upper quads). Absent: normoactive bowel sounds, distended, guarding Comments: Very diminished bowel sounds. NGT to low wall suction. - *Routine Extremities Exam Absent: edema, calf tenderness - *Routine Neurological Exam Present: alert, oriented X3 Assessment and Plan (1) Acute abdominal pain Current visit: Yes Status: Acute Category: Medical Code(s): R10.9 - Unspecified abdominal pain (2) Acute pancreatitis Current visit: Yes Status: Acute Category: Medical Code(s): K85.90 - Acute pancreatitis without necrosis or infection, unspecified (3) Duodenal obstruction Current visit: Yes Status: Acute Category: Medical Code(s): K31.5 - Obstruction of duodenum (4) Acute renal insufficiency Current visit: Yes Status: Acute Category: Medical Code(s): N28.9 - Disorder of kidney and ureter, unspecified (5) Hypokalemia Current visit: Yes Status: Acute Category: Medical Code(s): E87.6 - Hypokalemia (6) COPD (chronic obstructive pulmonary disease) Current visit: Yes Status: Acute Category: Medical Code(s): J44.9 - Chronic obstructive pulmonary disease, unspecified (7) Tobacco abuse Current visit: Yes Status: Acute Category: Medical Code(s): Z72.0 - Tobacco use (8) Chronic back pain Current visit: Yes Status: Acute Category: Medical Code(s): M54.9 - Dorsalgia, unspecified; G89.29 - Other chronic pain (9) Chronic mixed headache syndrome Current visit: Yes Status: Acute Category: Medical Code(s): G44.89 - Other headache syndrome (10) Anxiety disorder Current visit: Yes Status: Acute Category: Medical Code(s): F41.9 - Anxiety disorder, unspecified (11) BMI less than 19,adult Current visit: Yes Status: Acute Category: Medical Code(s): Z68.1 - Body mass index (BMI) 19.9 or less, adult - Assessment and plan all Dx Assessment and Plan for all problems::
--- NOTE | 2019-06-17 10:59 | PC.NURSE ---
pt to surgery at this time.
--- NOTE | 2019-06-17 11:08 | HMH.ANESCL ---
[facility] [place] Anesthesia Checklist - Patient Identification Patient Identification: Arm Band, Verbal (Name & ) - Structural Data Admitted From: Inpatient Planned Operative Procedure/s: EGD Consent for Planned Operative Procedure(s) Verified: Yes Verified Documents: Surgical Consent, History and Physical - NPO Status Verified Time NPO: 00:00 - Chart Verification Results Verified: CBC, BMP, ECG, Chest Xray - Additional verifications Anesthesia Reactions: No - Airway Assessment C-Spine Mobility Assessed: Yes TMJ Mobility Assessed: Yes Dentition: Poor Dentition - Neurological Assessment Level of Consciousness: Awake, Alert, Appropriate, Follows Commands Hx Seizures: No Numbness or tingling in extremities: No - Anesthesia Plan Anesthesia Risk discussed: Yes Anesthesia Plan: Verified ASA Class: III (emergent) Anesthesia Type: MAC [facility] [place] History I have reviewed the patient's past medical history: Yes Medical History: Reports:: Anxiety, Chronic Obstructive Pulmonary Disease (COPD), Gastroesophageal Reflux Disease(GERD) Denies:: Cancer, Diabetes Mellitus Type 1, Diabetes Mellitus Type 2, Gastrointestinal Bleed, MRSA, Renal Insufficiency *Have you ever received a pneumonia vaccine?: No *Have you received a flu vaccine this season?: No Other Medical History: Reports: Anemia, Arthritis, Other (Chronic back pain, chronic headache syndrome) Comment:: headaches, chronic back pain Anesthesia experience/problems:: none Other Surgeries: Yes: EGD Amputation: No Fractures: No - *Social History Educational Level: Completed High School Smoking Status: Current every day smoker Tobacco Type: cigarettes # Packs/Day (cigarettes): 1 Alcohol Intake: current Alcohol Intake Frequency:: holidays/special occasions only Substance Use Type: denies use *Occupational Status:: disabled (Work-related back injury) Housing: house Household Members: family *Travel in the last 8 weeks: None - Psychiatric History Pschychiatric History:: Reports:: Anxiety Family Hx:: Heart Attack, Hypertension
--- NOTE | 2019-06-17 11:17 | SUR.OPER ---
MD REMOVED NG TUBE AT THIS TIME.
--- NOTE | 2019-06-17 11:28 | HMH.SCOPE ---
- Procedure: Date: 06/17/19 Procedure Performed:: Esophagogastroduodenoscopy with biopsies Indications:: Patient is a 58-year-old white male who is admitted after progressive abdominal distention and pain. He was noted to have evidence of chemical pancreatitis. CT scan without contrast revealed significant gastric distention and findings of pancreatitis with findings suggestive of duodenal obstruction. He was admitted for inpatient management. He had nasogastric tube placed with evacuation of 6 L of fluid from the stomach which gave him some relief. Plan was to proceed with endoscopy to evaluate etiology of gastric outlet obstruction. Performing Provider:: Donnell López MD Referring Provider:: Niall Paige MD Sedation:: Propofol, Ativan Procedure:: Patient was taken to endoscopy procedure room. He was positioned in a lateral decubitus position. Adequate intravenous sedation was achieved with anesthesia titration of propofol. Olympus endoscope was inserted via the oropharynx and advanced in the stomach. Due to friction with the nasogastric tube the nasogastric tube was removed. Stomach was cannulated and insufflated. Retroflexion revealed a moderate hiatal hernia. There was a patch of significant erosive appearing gastritis with minimal ulceration in the cardia of the stomach. There was some minor mucosal necrosis patchy within this. This could be secondary to severe gastric distention resulting in gastritis. Several biopsies were ultimately obtained of this. Remainder of the stomach appeared relatively unremarkable. Pylorus was patent and pylorus was traversed. Endoscope was advanced into the distal duodenum. There was no evidence of any duodenal obstruction at this level. Endoscope was advanced as far as possible with no evidence of any duodenal obstruction. Stomach was desufflated and the endoscope was withdrawn. Findings:: Patch of severe erosive gastritis high in the cardia possibly secondary to severe gastric distention. Biopsies obtained. No evidence of any gastric outlet obstruction or duodenal obstruction Recommendations:: Nasogastric tube will remain out at this time. Patient may have some sips. Monitor pancreatitis. Likely will plan for upper GI tomorrow to assess for any obstruction distal to the duodenum. Complications:: None immediately apparent Estimated blood obtained (mL): 2
--- NOTE | 2019-06-17 11:55 | SUR.PHASEII ---
REPORT CALLED TO JAMES ORTEGA RN. PT STABLE. ALERT AND ORIENTED X3. DENIES ANY PAIN.
--- NOTE | 2019-06-17 15:06 | PC.NURSE ---
At bedside currently. Pt resting quietly. Have educated on use of IS and getting out of bed to chair. Pt states he get up to chair sometime soon. Have explained reasoning for being up to chair to prevent PNA and other complications. RR even and unlabored. VSS at this time. Will cont to mx this shift. No adventitious lung sounds noted. Have medicated per apr r/t pain rated 10/10 in abd and R lower pain. CB in reach.
--- NOTE | 2019-06-17 19:14 | PC.NURSE ---
report given to shannan
--- NOTE | 2019-06-17 20:10 | PC.NURSE ---
Addendum entered by Aidan Vicente RN 06/17/19 20:12: Pt has also been doing incentive spirometer as well, as educated. Original Note: Pt sitting up in chair at this time. RR even and unlabored. Have given report to Virginia Diop RN
[2019-06-18 03:46] VITALS: BP 168/79; PULSE 48; RESP 16; TEMP 37.1; O2SAT 99
[2019-06-18 04:14] VITALS: BMI 17.3
--- NOTE | 2019-06-18 06:34 | PC.NURSE ---
A&OX3. PERRLA, SCREWHEAD STONER AND POLISHER EQUAL BILAT. LUNGS CLEAR T/O AUSCULTATION, TOLERATED RA WELL. ENCOURAGED USE OF INCENTIVE SPIROMETER Q2HWA, VERBALIZED UNDERSTANDING TO USE ICENTIVE SPIROMETER Q2HWA. PULSES +2, CAP REFILL <3 SEC. ASYMPTOMATIC GRACE CARDIA NOTED THIS SHIFT. ABDOMEN FLAT, ACTIVE BOWEL SOUNDS, SOFT AND MILD TENDERNESS NOTED IN ALL QUADS PER PALPATION. PT REPORTS PASSING FLATUS, NO BM NOTED THIS SHIFT. C/O ABDOMINAL PAIN AND BACK PAIN THIS SHIFT, ADMINISTERED PRN PAIN MEDICATION PER APR. REQUESTED PRN ATIVAN AT BEGINNING OF SHIFT, ADMINISTERED PER APR. ON REASSESSMENTS OF PRN MEDICATIONS, PT WAS NOTED RESTING IN BED WITH EYES CLOSED. SCHERER CATHETER NOTED IN PLACE, DRAINING CLEAR /PALE YELLOW URINE. KATIA AREA CDI, NO S/S OF INFECTION. INDEPENDENT WITH BED MOBILITY. ENCOURAGED TURNING AND REPOSITIONING PERIODICALLY T/O SHIFT. VSS. WILL CONTINUE TO MONITOR.
[2019-06-18 07:16] LABS: Chloride 103 mmol/L (98-107); Sodium 135 mmol/L (136-145)
[2019-06-18 07:17] LABS: Potassium 3.4 mmoL/L (3.5-5.1)
[2019-06-18 07:19] LABS: Blood Urea Nitrogen 15 mg/dl (9-20); Creatinine Clearance Estimated 73 mL/min (50-200); Estimated Glomerular Filt Rate 100 ml/min (>60); GFR (African American) 121 ML/MIN (>60)
[2019-06-18 07:20] LABS: Anion Gap 11.4 mEq/L (5-15); Calcium 8.4 mg/dl (8.4-10.2); Carbon Dioxide 24 mmol/L (22.0-30.0); Glucose 55 mg/dl (74-100)
[2019-06-18 07:36] VITALS: BP 151/95; PULSE 58; RESP 17; TEMP 36.9; O2SAT 99
--- NOTE | 2019-06-18 08:00 | FL_ITS ---
PROCEDURE: FL UPPER GI SMALL BOWEL CLINICAL INDICATION: Gastric outlet obstruction follow-up COMPARISON: CT ABDOMEN PELVIS WO CON from 06/15/2019 FINDINGS: Fluoroscopy time: 3 minutes and 56 seconds. Lithographic Retoucher Apprentice exam shows mild gaseous distention of the stomach. Nondistended gas noted within large and small bowel. Esophagus has an unremarkable appearance. There is mild distention of the stomach as well as the duodenal bulb descending duodenum and proximal transverse portion of the duodenum. There is limited peristalsis of the stomach and proximal small bowel. On the AP views of the abdomen there is a filling defect formed along the body of the stomach and along the transverse portion of the duodenum. This is secondary to the patient's severe cachexia and the underlying spine. No obstructing lesions are evident. This outlet obstruction could also be contributed by a superior mesenteric artery syndrome. No ulcer or mass is evident. No hiatal hernia. The small bowel has an unremarkable appearance. No obstructing lesions masses or mucosal abnormalities are evident. IMPRESSION: There is relative outlet obstruction at the 3rd portion of the duodenum with dilatation of the stomach and duodenum up to this point. There is poor gastric and proximal small bowel motility. This obstruction could be a combination of gastro paresis along with patient's severe cachexia and compression of the 3rd portion of the duodenum by the superior mesenteric artery/superior mesenteric artery syndrome contributed also by compression posteriorly by the spine.. CT angiogram of the mesenteric vessels may provide further evaluation. Nuclear medicine gastric emptying scan may also provide further evaluation. Dictated by: Shaggy Alexandre MD 06/18/2019 16:58 Electronically signed by Shaggy Alexandre MD in [place] 06/18/2019 16:58
--- NOTE | 2019-06-18 08:21 | HMH.ACPN2 ---
<Anisha Mohan - Last Filed: 06/18/19 08:21> Internal Medicine - PN: Subj *Date: 06/18/19 *Time: 08:21 Interval history: Patient states that he is doing well this morning. He did sleep some during the night. Is n.p.o. for x-rays this morning. He states he has minimal abdominal pain although he is received Dilaudid about every 2 hours. He denies nausea has had no vomiting. He states he is passing gas and has had no bowel movements. Had an EGD yesterday per Dr. López with the following:Findings:: Patch of severe erosive gastritis high in the cardia possibly secondary to severe gastric distention. Biopsies obtained. No evidence of any gastric outlet obstruction or duodenal obstruction Recommendations:: Nasogastric tube will remain out at this time. Patient may have some sips. Monitor pancreatitis. Likely will plan for upper GI tomorrow to assess for any obstruction distal to the duodenum. Exam Vital signs and Labs for Last 24 Hours: Temp Pulse Resp BP Pulse Ox 98.5 F 58 L 17 151/95 H 99 06/18/19 07:36 06/18/19 07:36 06/18/19 07:36 06/18/19 07:36 06/18/19 07:36 Laboratory Results - last 24 hr 06/18/19 06:14: Sodium 135 L, Potassium 3.4 L, Chloride 103, Carbon Dioxide 24, Anion Gap 11.4, BUN 15 D, Creatinine 0.80, Estimated Creat Clear 73, Estimated GFR 100, Est GFR ( Amer) 121 D, Glucose 55 L, Calcium 8.4 I & O for Last 24 hours: Intake & Output 06/15/19 06/16/19 06/17/19 06/18/19 11:59 11:59 11:59 11:59 Intake Total 4070 / 4070 2891 / 3291 2737 / 2737 Output Total 1250 / 1250 2100 / 2100 3450 / 3450 Balance 2820 / 2820 791 / 1191 -713 / -713 Weight 130 lb 114 lb 113 lb 15.664 oz 110 lb 6 oz Microbiology Reports for the Last 24 Hours: Microbiology 06/15/19 11:21 Blood Blood Culture - Preliminary NO GROWTH AFTER 48 HOURS 06/15/19 11:21 Blood Blood Culture - Preliminary NO GROWTH AFTER 48 HOURS - Constitutional no acute distress Comments: Sleeping and easily awakened for assessment - *Routine Respiratory Exam Present: CTA bilaterally (Anteriorly and posteriorly) - *Routine Cardiovascular Exam Present: RRR - *Routine Abdominal Exam Present: soft, tenderness (Diffusely, mildly tender.). Absent: normoactive bowel sounds (Do hear some bowel sounds today.), distended, rigid - *Routine Extremities Exam Absent: edema, calf tenderness - *Routine Neurological Exam Present: alert, oriented X3 Assessment and Plan (1) Acute abdominal pain Current visit: Yes Status: Acute Category: Medical Code(s): R10.9 - Unspecified abdominal pain (2) Acute pancreatitis Current visit: Yes Status: Acute Category: Medical Code(s): K85.90 - Acute pancreatitis without necrosis or infection, unspecified (3) Duodenal obstruction Current visit: Yes Status: Acute Category: Medical Code(s): K31.5 - Obstruction of duodenum (4) Acute renal insufficiency Current visit: Yes Status: Acute Category: Medical Code(s): N28.9 - Disorder of kidney and ureter, unspecified (5) Hypokalemia Current visit: Yes Status: Acute Category: Medical Code(s): E87.6 - Hypokalemia (6) COPD (chronic obstructive pulmonary disease) Current visit: Yes Status: Acute Category: Medical Code(s): J44.9 - Chronic obstructive pulmonary disease, unspecified (7) Tobacco abuse Current visit: Yes Status: Acute Category: Medical Code(s): Z72.0 - Tobacco use (8) Chronic back pain Current visit: Yes Status: Acute Category: Medical Code(s): M54.9 - Dorsalgia, unspecified; G89.29 - Other chronic pain (9) Chronic mixed headache syndrome Current visit: Yes Status: Acute Category: Medical Code(s): G44.89 - Other headache syndrome (10) Anxiety disorder Current visit: Yes Status: Acute Category: Medical Code(s): F41.9 - Anxiety disorder, unspecified (11) BMI less than 19,adul
--- NOTE | 2019-06-18 12:50 | HMH.GSPN ---
Subjective Patient reports: feels better Narrative: Minimal epigastric pain. No vomiting or bloating. Exam Vital signs and Labs for Last 24 Hours: Temp Pulse Resp BP Pulse Ox 98.5 F 58 L 17 151/95 H 99 06/18/19 07:36 06/18/19 07:36 06/18/19 07:36 06/18/19 07:36 06/18/19 07:36 Laboratory Results - last 24 hr 06/18/19 06:14: Sodium 135 L, Potassium 3.4 L, Chloride 103, Carbon Dioxide 24, Anion Gap 11.4, BUN 15 D, Creatinine 0.80, Estimated Creat Clear 73, Estimated GFR 100, Est GFR ( Amer) 121 D, Glucose 55 L, Calcium 8.4 I & O for Last 24 hours: Intake & Output 06/16/19 06/17/19 06/18/19 06/19/19 11:59 11:59 11:59 11:59 Intake Total 4070 / 4070 2891 / 3291 2737 / 2737 0 / 0 Output Total 1250 / 1250 2100 / 2100 3450 / 3450 Balance 2820 / 2820 791 / 1191 -713 / -713 0 / 0 Weight 114 lb 113 lb 15.664 oz 110 lb 6 oz Microbiology Reports for the Last 24 Hours: Microbiology 06/15/19 11:21 Blood Blood Culture - Preliminary NO GROWTH AFTER 48 HOURS 06/15/19 11:21 Blood Blood Culture - Preliminary NO GROWTH AFTER 48 HOURS - *Routine Abdominal Exam Present: soft Progress Note: A&P (1) Acute abdominal pain Status: Acute Current Visit: Yes (2) Acute pancreatitis Status: Acute Current Visit: Yes (3) Duodenal obstruction Status: Acute Current Visit: Yes (4) Acute renal insufficiency Status: Acute Current Visit: Yes (5) Hypokalemia Status: Acute Current Visit: Yes (6) COPD (chronic obstructive pulmonary disease) Status: Acute Current Visit: Yes (7) Tobacco abuse Status: Acute Current Visit: Yes (8) Chronic back pain Status: Acute Current Visit: Yes (9) Chronic mixed headache syndrome Status: Acute Current Visit: Yes (10) Anxiety disorder Status: Acute Current Visit: Yes (11) BMI less than 19,adult Status: Acute Current Visit: Yes Assessment and Plan for All Diagnoses:: UGI SBFT today.
--- NOTE | 2019-06-18 14:14 | PC.NURSE ---
PT IS OFF THE FLOOR FOR UPPER GI AT THIS TIME. PT HAS RECEIVED DILAUDID PRN FOR PAIN THAT HE RATES 9/10. AMBULATES TO THE BATHROOM AD SANDRA. LUNG SOUNDS CLEAR. BOWEL SOUNDS HYPOACTIVE. PT HAS BEEN PASSING FLATUS BUT HAS NOT YET HAD A BOWEL MOVEMENT. AFTER UPPER GI PT STATES HE IS HOPING TO BE ABLE TO GET FOOD. VSS. WILL CONTINUE TO MONITOR.
[2019-06-18 20:00] VITALS: BP 179/92; PULSE 58; RESP 17; TEMP 37.1; O2SAT 100
[2019-06-19 03:45] VITALS: BP 163/81; PULSE 56; RESP 16; TEMP 37.3; O2SAT 100
--- NOTE | 2019-06-19 05:03 | PC.NURSE ---
A&OX3. PERRLA, WOOD CRAFTER EQUAL BILAT. LUNGS CLEAR T/O AUSCULTATION. TOLERATED RA WELL. PT REPORTS USING INCENTIVE SPIROMETER Q2HWA. ABDOMEN IS FLAT, ACTIVE BOWEL SOUNDS AUSCULTATED, SOFT AND NONTENDER PER PALPATION. REPORTS PASSING FLATUS, SMALL BM REPORTED PER PATIENT, PATIENT REPORTED BM BROWN IN COLOR AND LIQUID FORM. C/O PAIN IN BACK AND ABDOMEN THIS SHIFT, MEDICATED PER MAR WITH PRN DILAUDID. EDUCATION PROVIDED REGARDING USE OF DILAUDID AND HOW IMPORTANT IT IS TO USE DILAUDID ONLY WHEN NEEDED WITH SEVERE PAIN R/T SIDE EFFECTS, ESPECIALLY THE EFFECTS THE MEDICATION HAS ON THE GI TRACT. PT REPORTS PAIN 10/10 ON 0-10 DATA SOLUTIONS ARCHITECT, BUT IS NOTED JOKING WITH STAFF OR LAUGHING AT TV SHOW, PT REMAINS REPORTING PAIN 10/10 AND NEEDING DILAUDID, ADMINISTERED PER MAR MULTIPLE TIMES THIS SHIFT, ON REASSESSMENT PT IS NOTED RESTING WITH EYES CLOSED. ATTEMPTED TO USE WARM COMPRESSES WITH BACK AND ABDOMEN TO HELP RELIEVE PAIN WELL, PT STATED IT HELPS FOR A LITTLE BIT BUT THE PAIN COMES RIGHT BACK. PT NOTED TEARFUL AT ONE POINT THIS SHIFT, REPORT THAT EX HAD CALLED HIM AND UPSET HIM, REQUESTED TO ATIVAN, ADMINISTERED PER APR, ON REASSESSMENT PT NOTED IN BED RESTING WITH EYES CLOSED. AMBULATED IN ROOM WITH SBA, TOLERATED WELL. SCHERER CATHETER IN PLACE, PATENT AND DRAINING CLEAR YELLOW URINE, KATIA AREA CDI. VSS. WILL CONTINUE TO MONITOR.
[2019-06-19 05:04] VITALS: BMI 17.3
--- NOTE | 2019-06-19 07:15 | HMH.GSPN ---
Subjective Narrative: Patient still has had some generalized abdominal pains. Has been on Dilaudid. Underwent upper GI with small bowel follow-through yesterday. This revealed findings of possible partial compression of the third portion of the duodenum. 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 CT angiogram of the abdomen and possible gastric emptying scan were suggested. Exam Vital signs and Labs for Last 24 Hours: Temp Pulse Resp BP Pulse Ox 99.1 F 56 L 16 163/81 H 100 06/19/19 03:45 06/19/19 03:45 06/19/19 03:45 06/19/19 03:45 06/19/19 03:45 Laboratory Results - last 24 hr 06/18/19 06:14: Sodium 135 L, Potassium 3.4 L, Chloride 103, Carbon Dioxide 24, Anion Gap 11.4, BUN 15 D, Creatinine 0.80, Estimated Creat Clear 73, Estimated GFR 100, Est GFR ( Amer) 121 D, Glucose 55 L, Calcium 8.4 I & O for Last 24 hours: Intake & Output 06/16/19 06/17/19 06/18/19 06/19/19 11:59 11:59 11:59 11:59 Intake Total 4070 / 4070 2891 / 3291 2837 / 2837 662 / 662 Output Total 1250 / 1250 2100 / 2100 3450 / 3450 2300 / 2300 Balance 2820 / 2820 791 / 1191 -613 / -613 -1638 / -1638 Weight 114 lb 113 lb 15.664 oz 110 lb 6 oz 110 lb 5 oz - *Routine Abdominal Exam Present: soft Progress Note: A&P (1) Acute abdominal pain Status: Acute Current Visit: Yes (2) Acute pancreatitis Status: Acute Current Visit: Yes (3) Duodenal obstruction Status: Acute Current Visit: Yes (4) Acute renal insufficiency Status: Acute Current Visit: Yes (5) Hypokalemia Status: Acute Current Visit: Yes (6) COPD (chronic obstructive pulmonary disease) Status: Acute Current Visit: Yes (7) Tobacco abuse Status: Acute Current Visit: Yes (8) Chronic back pain Status: Acute Current Visit: Yes (9) Chronic mixed headache syndrome Status: Acute Current Visit: Yes (10) Anxiety disorder Status: Acute Current Visit: Yes (11) BMI less than 19,adult Status: Acute Current Visit: Yes Assessment and Plan for All Diagnoses:: Will obtain CT angiogram of the abdomen today. Would not pursue gastric emptying scan as an inpatient. After this is completed patient may be able to be started on some liquids. Etiology of pancreatitis still remains unclear and patient may require gallbladder ultrasound.
--- NOTE | 2019-06-19 07:18 | US_ITS ---
PROCEDURE: US GALLBLADDER CLINICAL INDICATION: PANCREATITIS Pancreatitis, abdominal pain and distension COMPARISON: No exams were available for comparison FINDINGS: Pancreas: Unremarkable/Not well seen Liver: Unremarkable. There is appropriate direction of blood flow within a non dilated portal vein. Right kidney: Unremarkable appearing. No hydronephrosis. Gallbladder: Gallbladder is contracted with thickened wall with sludge present in the gallbladder. No obvious stones. Gallbladder wall measures up to mm. No pericholecystic fluid is evident. Common bile duct measures up to 5 mm. There is gastric distention with fluid in the stomach. IMPRESSION: 1. Contracted gallbladder with thickened wall with sludge. No stones. 2. Gastric distension Dictated by: Shaggy Alexandre MD 06/19/2019 19:33 Electronically signed by Shaggy Alexandre MD in [facility] 06/19/2019 19:33
--- NOTE | 2019-06-19 07:19 | CT_ITS ---
Procedure: CT ANGIO ABDOMEN PELVIS CLINICAL HISTORY: NAUSEA, POSSIBLE SMA SYNDROME COMPARISON: CT ABDOMEN PELVIS WO CON from 06/15/2019 TECHNIQUE: IV Contrast: 100ml Optiray 350 Axial images obtained with sagittal and coronal reformats. All CT scans at the facility use one or more dose reduction, viz: automated exposure control, ma/kV adjustment per patient size (including targeted exams where dose is matched to indication, i.e. head), or iterative reconstruction technique. FINDINGS: There was a moderate amount of residual barium which causes marked artifact of the abdomen and pelvis. This renders the mid and lower abdomen nondiagnostic. CT angiogram was performed and does demonstrate the celiac, superior mesenteric artery, and mid and upper abdominal aorta without significant artifact The aorto mesenteric angle measures 26 degrees within aorto mesenteric distance of 6 mm. Normal aorto mesenteric angle is between 45 and 60 degrees and normal aorto mesenteric distance is between 6 and 20 mm. Aortal mesenteric angles less than 22-28 degrees with an aorto mesenteric distance of between 2 and 8 mm are strongly suggestive of SMA. (Clinical Practice Cases Emergency Medicine June 2016 page [id number]) There are mild atheromatous changes of the abdominal aorta with minimal dilatation of the mid abdominal aorta at 2.3 cm. There is a small amount of pericholecystic fluid. The stomach remains distended but not to the degree as on the previous exam. There is also mild distension of the duodenum which decreases in caliber distal to the crossover of midline. IMPRESSION: 1. 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 Please see above for description. 2. There is significant artifact from the contrast within the colon and small bowel from the previous day 3. Small amount of pericholecystic fluid 4. Persistent gastric distention as well as distention of the duodenum to the distal 3rd portion Dictated by: Shaggy Alexandre MD 06/19/2019 11:34 Electronically signed by Shaggy Alexandre MD in [facility] 06/19/2019 11:34
[2019-06-19 08:00] VITALS: BP 138/79; PULSE 63; RESP 16; TEMP 36.7; O2SAT 99
--- NOTE | 2019-06-19 08:22 | HMH.ACPN2 ---
<Cecille Romero - Last Filed: 06/19/19 08:22> Internal Medicine - PN: Subj *Date: 06/19/19 *Time: 08:22 Interval history: Patient states he is feeling a little bit better this morning. He still has some epigastric and right upper quadrant pain requiring pain medication. He states he actually was able to sleep a few hours last night. He is eating ice chips and is hungry this morning. Dr. López has seen him and ordered a CT angiogram. Exam Vital signs and Labs for Last 24 Hours: Temp Pulse Resp BP Pulse Ox 99.1 F 56 L 16 163/81 H 100 06/19/19 03:45 06/19/19 03:45 06/19/19 03:45 06/19/19 03:45 06/19/19 03:45 I & O for Last 24 hours: Intake & Output 06/16/19 06/17/19 06/18/19 06/19/19 11:59 11:59 11:59 11:59 Intake Total 4070 / 4070 2891 / 3291 2837 / 2837 662 / 662 Output Total 1250 / 1250 2100 / 2100 3450 / 3450 2300 / 2300 Balance 2820 / 2820 791 / 1191 -613 / -613 -1638 / -1638 Weight 114 lb 113 lb 15.664 oz 110 lb 6 oz 110 lb 5 oz - Constitutional no acute distress - *Routine Respiratory Exam Present: CTA bilaterally - *Routine Cardiovascular Exam Present: RRR - *Routine Abdominal Exam Present: soft, normoactive bowel sounds, tenderness (epigastric area and RUQ) - *Routine Extremities Exam Absent: cyanosis, clubbing, edema - *Routine Skin Exam Present: warm. Absent: rash - *Routine Neurological Exam Present: alert, oriented X3 Assessment and Plan (1) Acute abdominal pain Current visit: Yes Status: Acute Category: Medical Code(s): R10.9 - Unspecified abdominal pain (2) Acute pancreatitis Current visit: Yes Status: Acute Category: Medical Code(s): K85.90 - Acute pancreatitis without necrosis or infection, unspecified (3) Duodenal obstruction Current visit: Yes Status: Acute Category: Medical Code(s): K31.5 - Obstruction of duodenum (4) Acute renal insufficiency Current visit: Yes Status: Acute Category: Medical Code(s): N28.9 - Disorder of kidney and ureter, unspecified (5) Hypokalemia Current visit: Yes Status: Acute Category: Medical Code(s): E87.6 - Hypokalemia (6) COPD (chronic obstructive pulmonary disease) Current visit: Yes Status: Acute Category: Medical Code(s): J44.9 - Chronic obstructive pulmonary disease, unspecified (7) Tobacco abuse Current visit: Yes Status: Acute Category: Medical Code(s): Z72.0 - Tobacco use (8) Chronic back pain Current visit: Yes Status: Acute Category: Medical Code(s): M54.9 - Dorsalgia, unspecified; G89.29 - Other chronic pain (9) Chronic mixed headache syndrome Current visit: Yes Status: Acute Category: Medical Code(s): G44.89 - Other headache syndrome (10) Anxiety disorder Current visit: Yes Status: Acute Category: Medical Code(s): F41.9 - Anxiety disorder, unspecified (11) BMI less than 19,adult Current visit: Yes Status: Acute Category: Medical Code(s): Z68.1 - Body mass index (BMI) 19.9 or less, adult - Assessment and plan all Dx Assessment and Plan for all problems:: Will have CT angiogram today. Surgery to follow. <Ronn Paige - Last Filed: 06/19/19 08:36> Internal Medicine - PN: Subj *Date: 06/19/19 *Time: 08:35 Exam Vital signs and Labs for Last 24 Hours: Temp Pulse Resp BP Pulse Ox 99.1 F 56 L 16 163/81 H 100 06/19/19 03:45 06/19/19 03:45 06/19/19 03:45 06/19/19 03:45 06/19/19 03:45 I & O for Last 24 hours: Intake & Output 06/16/19 06/17/19 06/18/19 06/19/19 11:59 11:59 11:59 11:59 Intake Total 4070 / 4070 2891 / 3291 2837 / 2837 662 / 662 Output Total 1250 / 1250 2100 / 2100 3450 / 3450 2300 / 2300 Balance 2820 / 2820 791 / 1191 -613 / -613 -1638 / -1638 Weight 114 lb 113 lb 15.664 oz 110 lb 6 oz 110 lb 5 oz Assessment and Plan (1) Acute abdominal pain Current visit: Yes Status: Acute Category: Medical Code(s): R10.9 - Unspecified abdominal pain (
--- NOTE | 2019-06-19 13:14 | HMH.GSPN ---
Subjective Patient reports: no new complaints Exam Vital signs and Labs for Last 24 Hours: Temp Pulse Resp BP Pulse Ox 98.0 F 63 16 138/79 99 06/19/19 08:00 06/19/19 08:00 06/19/19 08:00 06/19/19 08:00 06/19/19 08:00 I & O for Last 24 hours: Intake & Output 06/17/19 06/18/19 06/19/19 06/20/19 11:59 11:59 11:59 11:59 Intake Total 2891 / 3291 2837 / 2837 762 / 762 Output Total 2100 / 2100 3450 / 3450 2900 / 2900 Balance 791 / 1191 -613 / -613 -2138 / -2138 Weight 113 lb 15.664 oz 110 lb 6 oz 110 lb 5 oz - *Routine Abdominal Exam Present: soft Progress Note: A&P (1) Acute abdominal pain Status: Acute Current Visit: Yes (2) Acute pancreatitis Status: Acute Assessment and plan: Ultrasound of the gallbladder reveals no stones with normal common bile duct although he does have some gallbladder wall thickening and sludge. Current Visit: Yes (3) Duodenal obstruction Status: Acute Assessment and plan: CT angiogram does reveal findings consistent with SMA syndrome. Patient likely does have some degree of extrinsic compression creating partial distal duodenal obstruction. I will go ahead and start the patient on liquid diet. Hopefully he will be able to maintain some nutrition and hydration with liquids. May ultimately require referral to tertiary care facility for consideration of gastrojejunostomy bypass of the duodenum. Current Visit: Yes (4) Acute renal insufficiency Status: Acute Current Visit: Yes (5) Hypokalemia Status: Acute Current Visit: Yes (6) COPD (chronic obstructive pulmonary disease) Status: Acute Current Visit: Yes (7) Tobacco abuse Status: Acute Current Visit: Yes (8) Chronic back pain Status: Acute Current Visit: Yes (9) Chronic mixed headache syndrome Status: Acute Current Visit: Yes (10) Anxiety disorder Status: Acute Current Visit: Yes (11) BMI less than 19,adult Status: Acute Current Visit: Yes
--- NOTE | 2019-06-19 13:56 | DIET.NUTRFU ---
Diet will advance to clears today. Weight dropped 4# since admit. Dietary will send clear liquid protein supplements all meals. Will continue to monitor tolerance and make necessary modifications as diet continues to advance.
--- NOTE | 2019-06-19 14:43 | HMH.ACPN ---
Internal Medicine - PN: Subj *Date: 06/19/19 *Time: 14:43 Exam Vital signs and Labs for Last 24 Hours: Temp Pulse Resp BP Pulse Ox 98.0 F 63 16 138/79 99 06/19/19 08:00 06/19/19 08:00 06/19/19 08:00 06/19/19 08:00 06/19/19 08:00 I & O for Last 24 hours: Intake & Output 06/16/19 06/17/19 06/18/19 06/19/19 23:59 23:59 23:59 23:59 Intake Total 3104 / 3104 3177 / 3177 1799 / 1799 60 / 60 Output Total 1750 / 1750 2950 / 2950 3050 / 3050 1600 / 1600 Balance 1354 / 1354 227 / 227 -1251 / -1251 -1540 / -1540 Weight 51.71 kg 52 kg 50.065 kg 50.037 kg Assessment and Plan (1) Acute abdominal pain Current visit: Yes Status: Acute Category: Medical Code(s): R10.9 - Unspecified abdominal pain (2) Acute pancreatitis Current visit: Yes Status: Acute Category: Medical Code(s): K85.90 - Acute pancreatitis without necrosis or infection, unspecified (3) Duodenal obstruction Current visit: Yes Status: Acute Category: Medical Code(s): K31.5 - Obstruction of duodenum (4) Acute renal insufficiency Current visit: Yes Status: Acute Category: Medical Code(s): N28.9 - Disorder of kidney and ureter, unspecified (5) Hypokalemia Current visit: Yes Status: Acute Category: Medical Code(s): E87.6 - Hypokalemia (6) COPD (chronic obstructive pulmonary disease) Current visit: Yes Status: Acute Category: Medical Code(s): J44.9 - Chronic obstructive pulmonary disease, unspecified (7) Tobacco abuse Current visit: Yes Status: Acute Category: Medical Code(s): Z72.0 - Tobacco use (8) Chronic back pain Current visit: Yes Status: Acute Category: Medical Code(s): M54.9 - Dorsalgia, unspecified; G89.29 - Other chronic pain (9) Chronic mixed headache syndrome Current visit: Yes Status: Acute Category: Medical Code(s): G44.89 - Other headache syndrome (10) Anxiety disorder Current visit: Yes Status: Acute Category: Medical Code(s): F41.9 - Anxiety disorder, unspecified (11) BMI less than 19,adult Current visit: Yes Status: Acute Category: Medical Code(s): Z68.1 - Body mass index (BMI) 19.9 or less, adult The patient's infection will respond to the chosen ABx?: Yes Is the patient receiving the right drug, dose, and route?: Yes Could a more targeted ABx be ordered?: No
[2019-06-19 16:00] VITALS: BP 130/69; PULSE 94; RESP 18; TEMP 37.3; O2SAT 99
--- NOTE | 2019-06-19 18:11 | PC.NURSE ---
PT IS RESTING IN BED. TOLERATED CLEAR LIQUIDS WELL W/O N/V. REQUESTING PAIN MEDICATION EVERY 2-3 HOURS WITH A PAIN RATE 9/10. PT HAS BEEN AMBULATING AROUND THE ROOM. VSS. PT HAD TO HAVE NEW IV ACCESS TO THE [facility] FOR RADIOLOGY CT THIS SHIFT. LUNG SOUNDS CLEAR. BOWEL SOUNDS HYPOACTIVE. PT STATES HE HAS HAD 3 LOOSE BM'S THIS SHIFT. WILL CONTINUE TO MONITOR.
--- NOTE | 2019-06-19 19:16 | PC.NURSE ---
report given to moise
[2019-06-19 19:53] VITALS: BP 164/82; PULSE 69; RESP 16; TEMP 36.7; O2SAT 98
[2019-06-20 04:00] VITALS: BP 171/84; PULSE 73; RESP 18; TEMP 36.9; O2SAT 100
[2019-06-20 05:00] VITALS: BMI 17.8
--- NOTE | 2019-06-20 06:21 | PC.NURSE ---
Pt rested well in early shift, Dilaudid and Lorazepam given with good results with pt sleeping until approximately 0300. Gave Dilaudid at 0327 and then again at 0605. Pt reports pain a 9/10 out of 10 every time. Abdomen flat and tender with hypo bowel sounds. Pt reports bm being loose, white and looking like grains of sand. Discussed recent testing, pt reported he Drank that stuff yesterday fast cause he was starving to . Weight actually increased by 3 pounds. IV fluid NS c 40K @ 100ml/hr infusing well, pt up about in the room, went to bathroom, however reports he is still weak and doesn't know when he will get to go home. Remained safe, call light w/i reach, monitoring continues.
--- NOTE | 2019-06-20 06:26 | HMH.GSPN ---
Subjective Patient reports: no new complaints Narrative: He states that he initially tolerated clear liquids but did develop some hold up overnight. Exam Vital signs and Labs for Last 24 Hours: Temp Pulse Resp BP Pulse Ox 98.5 F 73 18 171/84 H 100 06/20/19 04:00 06/20/19 04:00 06/20/19 04:00 06/20/19 04:00 06/20/19 04:00 I & O for Last 24 hours: Intake & Output 06/17/19 06/18/19 06/19/19 06/20/19 11:59 11:59 11:59 11:59 Intake Total 2891 / 3291 2837 / 2837 762 / 762 660 / 660 Output Total 2100 / 2100 3450 / 3450 2900 / 2900 2250 / 2250 Balance 791 / 1191 -613 / -613 -2138 / -2138 -1590 / -1590 Weight 113 lb 15.664 oz 110 lb 6 oz 110 lb 5 oz 113 lb 6 oz - Constitutional no acute distress - *Routine Respiratory Exam Absent: respiratory distress - *Routine Cardiovascular Exam Present: RRR Progress Note: A&P (1) Acute abdominal pain Status: Acute Current Visit: Yes (2) Acute pancreatitis Status: Acute Current Visit: Yes (3) Duodenal obstruction Status: Acute Current Visit: Yes (4) Acute renal insufficiency Status: Acute Current Visit: Yes (5) Hypokalemia Status: Acute Current Visit: Yes (6) COPD (chronic obstructive pulmonary disease) Status: Acute Current Visit: Yes (7) Tobacco abuse Status: Acute Current Visit: Yes (8) Chronic back pain Status: Acute Current Visit: Yes (9) Chronic mixed headache syndrome Status: Acute Current Visit: Yes (10) Anxiety disorder Status: Acute Current Visit: Yes (11) BMI less than 19,adult Status: Acute Current Visit: Yes (12) SMAS (superior mesenteric artery syndrome) Status: Acute Assessment and plan: The patient may ultimately require gastrojejunostomy; however, if he is able to have a feeding tube placed distally (PEG-J or PEJ) his symptoms may ultimately resolve (with concomitant weight gain). Improved nutritional status that would accompany distal tube feeds would also likely improve his outcome if he does ultimately require operative bypass. NPO p MN for GI consultation (possible PEG-J or PEJ). Current Visit: Yes
[2019-06-20 08:00] VITALS: BP 159/94; PULSE 108; RESP 18; TEMP 37.2; O2SAT 98
[2019-06-20 08:09] VITALS: RESP 18
--- NOTE | 2019-06-20 08:23 | HMH.ACPN2 ---
<Cecille Romero - Last Filed: 06/20/19 08:23> Internal Medicine - PN: Subj *Date: 06/20/19 *Time: 08:23 Interval history: Patient states he did eat this morning but thinks he ate too much. He is now having some nausea and some epigastric pain. He denies any vomiting and did have a bowel movement yesterday. He states he was up and got a shower and moved about his room yesterday and felt very well. He slept decently last night. Exam Vital signs and Labs for Last 24 Hours: Temp Pulse Resp BP Pulse Ox 98.9 F 108 H 18 159/94 H 98 06/20/19 08:00 06/20/19 08:00 06/20/19 08:09 06/20/19 08:00 06/20/19 08:00 I & O for Last 24 hours: Intake & Output 06/17/19 06/18/19 06/19/19 06/20/19 11:59 11:59 11:59 11:59 Intake Total 2891 / 3291 2837 / 2837 762 / 762 2850 / 2850 Output Total 2099 / 2100 3450 / 3450 2900 / 2900 2250 / 2250 Balance 791 / 1191 -613 / -613 -2138 / -2138 600 / 600 Weight 113 lb 15.664 oz 110 lb 6 oz 110 lb 5 oz 113 lb 6 oz - Constitutional no acute distress, cachectic - *Routine Respiratory Exam Present: CTA bilaterally - *Routine Cardiovascular Exam Present: RRR - *Routine Abdominal Exam Present: soft, normoactive bowel sounds, tenderness (epigastric area) - *Routine Extremities Exam Absent: cyanosis, clubbing, edema - *Routine Skin Exam Present: warm. Absent: rash - *Routine Neurological Exam Present: alert, oriented X3 Assessment and Plan (1) Acute abdominal pain Current visit: Yes Status: Acute Category: Medical Code(s): R10.9 - Unspecified abdominal pain (2) Acute pancreatitis Current visit: Yes Status: Acute Category: Medical Code(s): K85.90 - Acute pancreatitis without necrosis or infection, unspecified (3) Duodenal obstruction Current visit: Yes Status: Acute Category: Medical Code(s): K31.5 - Obstruction of duodenum (4) Acute renal insufficiency Current visit: Yes Status: Acute Category: Medical Code(s): N28.9 - Disorder of kidney and ureter, unspecified (5) Hypokalemia Current visit: Yes Status: Acute Category: Medical Code(s): E87.6 - Hypokalemia (6) COPD (chronic obstructive pulmonary disease) Current visit: Yes Status: Acute Category: Medical Code(s): J44.9 - Chronic obstructive pulmonary disease, unspecified (7) Tobacco abuse Current visit: Yes Status: Acute Category: Medical Code(s): Z72.0 - Tobacco use (8) Chronic back pain Current visit: Yes Status: Acute Category: Medical Code(s): M54.9 - Dorsalgia, unspecified; G89.29 - Other chronic pain (9) Chronic mixed headache syndrome Current visit: Yes Status: Acute Category: Medical Code(s): G44.89 - Other headache syndrome (10) Anxiety disorder Current visit: Yes Status: Acute Category: Medical Code(s): F41.9 - Anxiety disorder, unspecified (11) BMI less than 19,adult Current visit: Yes Status: Acute Category: Medical Code(s): Z68.1 - Body mass index (BMI) 19.9 or less, adult (12) SMAS (superior mesenteric artery syndrome) Current visit: Yes Status: Acute Category: Medical Code(s): K55.1 - Chronic vascular disorders of intestine - Assessment and plan all Dx Assessment and Plan for all problems:: Patient has been seen by surgery this morning and will have a feeding tube placed tomorrow. Will continue current treatment. <Ronn Paige - Last Filed: 06/20/19 22:10> Internal Medicine - PN: Subj *Date: 06/20/19 *Time: 21:57 Exam Vital signs and Labs for Last 24 Hours: Temp Pulse Resp BP Pulse Ox 98.4 F 104 H 18 157/92 H 98 06/20/19 15:12 06/20/19 15:12 06/20/19 15:12 06/20/19 15:12 06/20/19 15:12 I & O for Last 24 hours: Intake & Output 06/18/19 06/19/19 06/20/19 06/21/19 11:59 11:59 11:59 11:59 Intake Total 2837 / 2837 762 / 762 2950 / 2950 2351 / 2351 Output Total 3450 / 3450 2900 / 2900 2250 / 2250 2049 Balance -613 / -613 -2138 / -213
[2019-06-20 15:12] VITALS: BP 157/92; PULSE 104; RESP 18; TEMP 36.9; O2SAT 98
--- NOTE | 2019-06-20 15:58 | PC.NURSE ---
Pt continues to have intermittent nausea and pain in abdomen. Requiring frequent administration of pain medication along with scheduled Ondansetron. Pt is drinking well today, has had two small mucoid bowel movements. Pt is interested in his care and asking appropriate questions regarding possible insertion of feeding tube tomorrow. I spoke with Dr. Paige regarding patient's understanding that feeding tube was to be place tomorrow. Reports from Dr. Houston today indicate possible tube insertion. Dr. Paige says that Drs. López and Celso are to consult with Dr. Vázquez regarding tube placement. No orders are noted thus far for tube insertion tomorrow, nor is patient listed on the OR schedule. Charge nurse is aware.
[2019-06-20 20:00] VITALS: BP 165/88; PULSE 76; RESP 20; TEMP 37.1; O2SAT 95
[2019-06-21] VITALS (18 sets, daily range): BP systolic 109–179; BP diastolic 70–91; PULSE 57–108; RESP 16–19; TEMP 36.1–37; O2SAT 94–100; BMI 17.6
--- NOTE | 2019-06-21 07:18 | PC.NURSE ---
Nothing acute to report this shift. Pt required pain meds several times and ativan x 2. NPO for Vázquez consult. IV infusing well [id number] at 100ml/hr. Pt showered and is ready for consult, education provided r/t feeding tube, pt has decided he is going to get it if the specialist agrees to put it in. Remains pleasant and cooperative with care, ambulates in room well with steady gait noted, presently resting in supine position, report given to Virginia Mooney RN, monitoring continues.
--- NOTE | 2019-06-21 08:05 | HMH.GSPN ---
Subjective Patient reports: no new complaints Narrative: Still with some mid-epigastric pain. Had tolerated some clears. Exam Vital signs and Labs for Last 24 Hours: Temp Pulse Resp BP Pulse Ox 98.2 F 89 18 179/90 H 94 L 06/21/19 04:18 06/21/19 04:18 06/21/19 04:18 06/21/19 04:18 06/21/19 04:18 I & O for Last 24 hours: Intake & Output 06/18/19 06/19/19 06/20/19 06/21/19 11:59 11:59 11:59 11:59 Intake Total 2837 / 2837 762 / 762 2950 / 2950 3510 / 3510 Output Total 3450 / 3450 2900 / 2900 2250 / 2250 2950 / 2950 Balance -613 / -613 -2138 / -2138 700 / 700 560 / 560 Weight 110 lb 6 oz 110 lb 5 oz 113 lb 6 oz 112 lb 7 oz Microbiology Reports for the Last 24 Hours: Microbiology 06/15/19 11:21 Blood Blood Culture - Final NO GROWTH AFTER 5 DAYS 06/15/19 11:21 Blood Blood Culture - Final NO GROWTH AFTER 5 DAYS - *Routine Abdominal Exam Present: soft Progress Note: A&P (1) Acute abdominal pain Status: Acute Current Visit: Yes (2) Acute pancreatitis Status: Acute Current Visit: Yes (3) Duodenal obstruction Status: Acute Assessment and plan: GI consult today for possible percutaneous jejunostomy. Current Visit: Yes (4) Acute renal insufficiency Status: Acute Current Visit: Yes (5) Hypokalemia Status: Acute Current Visit: Yes (6) COPD (chronic obstructive pulmonary disease) Status: Acute Current Visit: Yes (7) Tobacco abuse Status: Acute Current Visit: Yes (8) Chronic back pain Status: Acute Current Visit: Yes (9) Chronic mixed headache syndrome Status: Acute Current Visit: Yes (10) Anxiety disorder Status: Acute Current Visit: Yes (11) BMI less than 19,adult Status: Acute Current Visit: Yes (12) SMAS (superior mesenteric artery syndrome) Status: Acute Current Visit: Yes
--- NOTE | 2019-06-21 08:09 | HMH.ACPN2 ---
<Ira Bolton - Last Filed: 06/21/19 08:09> Internal Medicine - PN: Subj *Date: 06/21/19 *Time: 07:40 Interval history: Pt is sitting up in bed on his phone. He has no complaint other than some continued abdominal pain. He denies any nausea or vomiting. He had one loose BM overnight. He is NPO for G-tube placement this morning. Exam Vital signs and Labs for Last 24 Hours: Temp Pulse Resp BP Pulse Ox 98.2 F 89 18 179/90 H 94 L 06/21/19 04:18 06/21/19 04:18 06/21/19 04:18 06/21/19 04:18 06/21/19 04:18 I & O for Last 24 hours: Intake & Output 06/18/19 06/19/19 06/20/19 06/21/19 11:59 11:59 11:59 11:59 Intake Total 2837 / 2837 762 / 762 2950 / 2950 3510 / 3510 Output Total 3450 / 3450 2900 / 2900 2250 / 2250 2950 / 2950 Balance -613 / -613 -2138 / -2138 700 / 700 560 / 560 Weight 110 lb 6 oz 110 lb 5 oz 113 lb 6 oz 112 lb 7 oz Microbiology Reports for the Last 24 Hours: Microbiology 06/15/19 11:21 Blood Blood Culture - Final NO GROWTH AFTER 5 DAYS 06/15/19 11:21 Blood Blood Culture - Final NO GROWTH AFTER 5 DAYS - Constitutional no acute distress - *Routine HEENT Exam Head: Present: normocephalic, atraumatic ENT: Present: mucous membranes moist - *Routine Respiratory Exam Present: CTA bilaterally - *Routine Cardiovascular Exam Present: RRR - *Routine Abdominal Exam Comments: BS present x 4, soft, mildly ttp right upper and lower quadrant into the left lower quadrant, no G/M/R - *Routine Extremities Exam Present: full ROM, pulses intact. Absent: edema, calf tenderness - *Routine Neurological Exam Present: alert, oriented X3, moving all extremities, normal speech Assessment and Plan (1) Acute abdominal pain Current visit: Yes Status: Acute Category: Medical Code(s): R10.9 - Unspecified abdominal pain (2) Acute pancreatitis Current visit: Yes Status: Acute Category: Medical Code(s): K85.90 - Acute pancreatitis without necrosis or infection, unspecified (3) Duodenal obstruction Current visit: Yes Status: Acute Category: Medical Code(s): K31.5 - Obstruction of duodenum (4) Acute renal insufficiency Current visit: Yes Status: Acute Category: Medical Code(s): N28.9 - Disorder of kidney and ureter, unspecified (5) Hypokalemia Current visit: Yes Status: Acute Category: Medical Code(s): E87.6 - Hypokalemia (6) COPD (chronic obstructive pulmonary disease) Current visit: Yes Status: Acute Category: Medical Code(s): J44.9 - Chronic obstructive pulmonary disease, unspecified (7) Tobacco abuse Current visit: Yes Status: Acute Category: Medical Code(s): Z72.0 - Tobacco use (8) Chronic back pain Current visit: Yes Status: Acute Category: Medical Code(s): M54.9 - Dorsalgia, unspecified; G89.29 - Other chronic pain (9) Chronic mixed headache syndrome Current visit: Yes Status: Acute Category: Medical Code(s): G44.89 - Other headache syndrome (10) Anxiety disorder Current visit: Yes Status: Acute Category: Medical Code(s): F41.9 - Anxiety disorder, unspecified (11) BMI less than 19,adult Current visit: Yes Status: Acute Category: Medical Code(s): Z68.1 - Body mass index (BMI) 19.9 or less, adult (12) SMAS (superior mesenteric artery syndrome) Current visit: Yes Status: Acute Category: Medical Code(s): K55.1 - Chronic vascular disorders of intestine - Assessment and plan all Dx Assessment and Plan for all problems:: NPO for G-tube placement. Further per Dr. Paige. <Ronn Paige - Last Filed: 06/21/19 09:48> Internal Medicine - PN: Subj *Date: 06/21/19 *Time: 09:47 Exam Vital signs and Labs for Last 24 Hours: Temp Pulse Resp BP Pulse Ox 97.8 F 108 H 19 119/76 99 06/21/19 08:00 06/21/19 08:00 06/21/19 08:00 06/21/19 08:00 06/21/19 08:00 I & O for Last 24 hours:
--- NOTE | 2019-06-21 14:51 | HMH.PROC ---
[facility] Procedure Note Procedure Note:: Small bowel enteroscopy report: Small bowel enteroscopy Endoscopost: Tony Vázquez II, MD Referring Physician: Donnell López MD Date of Procedure: June 21, 2019 Equipment: Olympus PCF pediatric colonoscope and GIF 180 standard upper endoscope Sedation: MAC sedation Indications: Mr. Renae is a 58-year-old gentleman who presented with abdominal pain and distention with nausea. The patient initially had both biochemical pancreatitis as well as pancreatitis on scan. On the scan there was also evidence of marked gastric distention and possibly duodenal obstruction. This was most consistent with SMA syndrome. There was extrinsic complexion and angulation of the takeoff of the SMA in the third portion of the duodenum. EGD a few days ago showed marked amount of gastric fluid and 6 L was removed via NG tube. A subsequent upper GI with small bowel follow-through was also characteristic of SMA syndrome. The patient is thin with low BMI. We have discussed duodenal bypass/surgical bypass versus direct jejunostomy placement if feasible. I spoke with general surgery this morning and felt that this attempt a JG tube placement directly would be the least invasive initial approach. The patient has had a moderate amount of weight loss. Procedure: Prior to the procedure, a history and physical exam was performed, and patient's medications and allergies were reviewed. The risks, benefits and alternatives of the sedation and procedure were discussed with the patient. All questions were answered and informed consent was obtained. The patient was brought to the procedure room. Patient identification and proposed procedure were verified by the physician and the nurse. The patient was placed in a left lateral decubitus position and the scope was passed under direct vision. Throughout the procedure, the patient's blood pressure, pulse, and oxygen saturations were monitored continuously. The upper GI endoscopy was accomplished without difficulty. The patient tolerated the procedure well. Findings: The scope was passed directly into the upper esophagus and advanced to the fourth portion of the duodenum into the proximal and mid jejunum as far as the colonoscope could reach into the upper small intestine. The colonoscope transillumination light was turned up to maximal. As the colonoscope was withdrawn and the duodenum there was only one point of transillumination that was on the far left flank beyond the mid axillary line. This was fleeting and I could not get good one-to-one visualization at the same point. Several attempts were made with the high transillumination light intensity throughout the point from most distal to the second portion of the duodenum, and there was no area of excellent transillumination or one-to-one visualization. In other words, there was no place to do direct jejunostomy placement. Attempts were made to place the patient in the left and right lateral decubitus position and even then there was no transillumination or direct one-to-one visualization of direct abdominal wall palpation. There was transillumination and one-to-one visualization when the endoscope or colonoscope was within the gastric lumen. Consideration of GJ tube percutaneous was made but was not performed primarily because of weighing benefits/risks with the higher rate of failure for the J-tube not to get coiled up in the stomach. I also felt that if the patient needs duodenal bypass in the future I would like to remain with virgin abdomen which may result in less peritoneal adhesions related to enterostomy tube placement. There was 3 to 4 L of bile removed from the stomach with some mild bile reactive gastropathy. The esophagus was normal. Impression: 1. Small bowel enteroscopy with inability to directly place jejunostomy tube percutaneously (no transillumination or direct percutaneous palpable one-to-one visualization within jejunum)
--- NOTE | 2019-06-21 15:18 | DIET.NUTRFU ---
Pt will not have J tube placed at this time dt difficulty placing percutaneously, per Dr. Vázquez- procedure note. Slow advancement to small frequent feedings are recommended. Will work with dietary to provide this upon diet advancement and continue to monitor.
--- NOTE | 2019-06-21 16:18 | HMH.ANESCL ---
[facility] Anesthesia Checklist - Structural Data Admitted From: Inpatient Planned Operative Procedure/s: peg tube Consent for Planned Operative Procedure(s) Verified: Yes - Additional verifications Anesthesia Reactions: No - Airway Assessment C-Spine Mobility Assessed: Yes TMJ Mobility Assessed: Yes Dentition: Poor Dentition - Neurological Assessment Level of Consciousness: Awake, Alert, Appropriate - Anesthesia Plan Anesthesia Risk discussed: Yes Anesthesia Plan: Verified ASA Class: III Anesthesia Type: MAC [facility] History I have reviewed the patient's past medical history: Yes Medical History: Reports:: Anxiety, Chronic Obstructive Pulmonary Disease (COPD), Gastroesophageal Reflux Disease(GERD), Hypertension, Lung Disease (COPD) Denies:: Cancer, Diabetes Mellitus Type 1, Diabetes Mellitus Type 2, Gastrointestinal Bleed, MRSA, Renal Insufficiency, Seizures *Have you ever received a pneumonia vaccine?: No *Have you received a flu vaccine this season?: No Other Medical History: Reports: Anemia, Arthritis, Other (Chronic back pain, chronic headache syndrome) Anesthesia experience/problems:: none Other Surgeries: Yes: No Previous Surgery, EGD Amputation: No Fractures: No - *Social History Educational Level: Completed High School Smoking Status: Current every day smoker Tobacco Type: cigarettes # Packs/Day (cigarettes): 1 Alcohol Intake: current Alcohol Intake Frequency:: holidays/special occasions only Substance Use Type: denies use *Occupational Status:: disabled (Work-related back injury) Housing: house Household Members: family *Travel in the last 8 weeks: None - Psychiatric History Pschychiatric History:: Reports:: Anxiety Family Hx:: Heart Attack, Hypertension
--- NOTE | 2019-06-21 19:08 | PC.NURSE ---
report given to shannan
[2019-06-22 04:00] VITALS: BMI 17.4
[2019-06-22 05:00] VITALS: BMI 17.4
--- NOTE | 2019-06-22 05:47 | PC.NURSE ---
A&OX3. PERRLA, CAUSTIC OPERATOR EQUAL BILAT. LUNGS CLEAR T/O AUSCULTATION. TOLERATES RA. REPORTS USING INCENTIVE SPIROMETER AND WAS ENCOURAGED PER STAFF TO USE Q1HWA. PULSES +2, CAP REFILL <3SEC. ABDOMEN FLAT, BOWEL SOUNDS NOTED ACTIVE PER AUSCULTATION IN ALL QUADS, SOFT AND NONTENDER PER PALPATION. NO REPORTED BM THIS SHIFT. NO C/O NAUSEA. C/O ABDOMINAL PAIN MULTIPLE TIMES SHIFT, ADMINISTERED PAIN MEDICATION PER APR, ON REASSESSMENT PT NOTED WITH A REPORTED TOLERABLE PAIN LEVEL OR WITH EYES CLOSED, RESTING IN BED. PT REQUESTED A DOSE OF ATIVAN AT BEGINNING OF SHIFT, PT STATED I JUST AM LAYING HERE THINKING ABOUT EVERYTHING AND WHEN I AM GOING TO GET OUT OF HERE AND WHY THE TUBE DIDN'T GET PLACED TODAY. SO YEAH I AM PRETTY ANXIOUS RIGHT NOW. PT REQUESTED FOR DILAUDID AND ATIVAN TO BE ADMINISTERED TOGETHER AROUND 0430, PT STATED I JUST WANT TO BE ABLE TO TAKE A LITTLE NAP. EDUCATION PROVIDED REGARDING USE OF DILAUDID AND ATIVAN NOT BEING FOR SLEEP. REMINDED DILAUDID WAS FOR SEVERE PAIN ONLY AND ATIVAN WAS USED ONLY FOR EPISODES OF ANXIETY. PT VERBALIZED UNDERSTANDING OF TEACHING, AND REQUESTED DILAUDID R/T SEVERE PAIN, ADMINISTERED PER APR, ON REASSESSMENT PT NOTED WITH EYES CLOSED AND RESTING IN BED. NICOTINE PATCH ADMINISTERED PER APR THIS SHIFT, WILL PASS ON TO DAY SHIFT RN THAT NICOTINE PATCH WAS ADMINISTERED EARLY. INDEPENDENT WITH ADLS. AMBULATED IN ROOM INDEPENDENTLY, TOLERATED WELL. VSS. WILL CONTINUE TO MONITOR.
[2019-06-22 06:24] LABS: Alanine Aminotransferase 19 U/L (12-78); Albumin Level 3.4 g/dl (3.5-5.0); Albumin/Globulin Ratio 1.5 (1.1-1.8); Alkaline Phosphatase 44 U/L (38-126); Aspartate Amino Transferase 24 U/L (17-59); Bilirubin,Total 0.4 mg/dl (0.2-1.3); Blood Urea Nitrogen 6 mg/dl (9-20); Carbon Dioxide 22 mmol/L (22.0-30.0); Chloride 110 mmol/L (98-107); Creatinine Clearance Estimated 65 mL/min (50-200); Estimated Glomerular Filt Rate 87 ml/min (>60); GFR (African American) 106 ML/MIN (>60); Globulin 2.3 g/dL (1.3-3.2); Glucose 67 mg/dl (74-100); Sodium 136 mmol/L (136-145); Total Protein,Serum 5.7 g/dl (6.3-8.2)
[2019-06-22 07:53] VITALS: BP 115/73; PULSE 76; RESP 18; TEMP 36.9; O2SAT 100
--- NOTE | 2019-06-22 08:17 | HMH.GSPN ---
Subjective Narrative: Patient states that he is hungry. Was unable to have percutaneous jejunostomy tube placed safely yesterday. He describes some abdominal soreness. Exam Vital signs and Labs for Last 24 Hours: Temp Pulse Resp BP Pulse Ox 98.4 F 76 18 115/73 100 06/22/19 07:53 06/22/19 07:53 06/22/19 07:53 06/22/19 07:53 06/22/19 07:53 Laboratory Results - last 24 hr 06/22/19 05:50: Sodium 136, Potassium 4.0, Chloride 110 H, Carbon Dioxide 22, Anion Gap 8.0, BUN 6 L, Creatinine 0.90, Estimated Creat Clear 65, Estimated GFR 87, Est GFR ( Amer) 106, Glucose 67 L, Calcium 9.0, Total Bilirubin 0.4, AST 24, ALT 19, Alkaline Phosphatase 44, Total Protein 5.7 L, Albumin 3.4 L, Globulin 2.3, Albumin/Globulin Ratio 1.5 I & O for Last 24 hours: Intake & Output 06/19/19 06/20/19 06/21/19 06/22/19 11:59 11:59 11:59 11:59 Intake Total 762 / 762 2950 / 2950 3610 / 3610 1635 / 1635 Output Total 2900 / 2900 2250 / 2250 3350 / 3350 2049 / 2049 Balance -2138 / -2138 700 / 700 260 / 260 -415 / -415 Weight 110 lb 5 oz 113 lb 6 oz 112 lb 7 oz 111 lb 1 oz - *Routine Abdominal Exam Present: soft Progress Note: A&P (1) Acute abdominal pain Status: Acute Current Visit: Yes (2) Acute pancreatitis Status: Acute Current Visit: Yes (3) Duodenal obstruction Status: Acute Current Visit: Yes (4) Acute renal insufficiency Status: Acute Current Visit: Yes (5) Hypokalemia Status: Acute Current Visit: Yes (6) COPD (chronic obstructive pulmonary disease) Status: Acute Current Visit: Yes (7) Tobacco abuse Status: Acute Current Visit: Yes (8) Chronic back pain Status: Acute Current Visit: Yes (9) Chronic mixed headache syndrome Status: Acute Current Visit: Yes (10) Anxiety disorder Status: Acute Current Visit: Yes (11) BMI less than 19,adult Status: Acute Current Visit: Yes (12) SMAS (superior mesenteric artery syndrome) Status: Acute Current Visit: Yes Assessment and Plan for All Diagnoses:: Plan to try full liquids with supplemental nutritional shakes. If patient is able to tolerate there is he may build to be discharged in the next day or 2 with close outpatient follow-up with minimally invasive surgery for possible laparoscopic gastrojejunostomy. If he is unable to tolerate this limited full liquids he may require transfer for stated surgery.
--- NOTE | 2019-06-22 08:41 | HMH.ACPN2 ---
Internal Medicine - PN: Subj *Date: 06/22/19 *Time: 08:41 Interval history: Reports from yesterday reviewed, discussed results with patient, primary RN and Dr. López. J tube could not be placed yesterday. Patient with no new complaints. Exam Vital signs and Labs for Last 24 Hours: Temp Pulse Resp BP Pulse Ox 98.4 F 76 18 115/73 100 06/22/19 07:53 06/22/19 07:53 06/22/19 07:53 06/22/19 07:53 06/22/19 07:53 Laboratory Results - last 24 hr 06/22/19 05:50: Sodium 136, Potassium 4.0, Chloride 110 H, Carbon Dioxide 22, Anion Gap 8.0, BUN 6 L, Creatinine 0.90, Estimated Creat Clear 65, Estimated GFR 87, Est GFR ( Amer) 106, Glucose 67 L, Calcium 9.0, Total Bilirubin 0.4, AST 24, ALT 19, Alkaline Phosphatase 44, Total Protein 5.7 L, Albumin 3.4 L, Globulin 2.3, Albumin/Globulin Ratio 1.5 I & O for Last 24 hours: Intake & Output 06/19/19 06/20/19 06/21/19 06/22/19 23:59 23:59 23:59 23:59 Intake Total 760 / 760 4761 / 4811 1639 / 1639 1035 / 1035 Output Total 3200 / 3200 2700 / 2700 2100 / 2100 1250 / 1250 Balance -2440 / -2440 2061 / 2111 -461 / -461 -215 / -215 Weight 110 lb 5 oz 113 lb 6 oz 112 lb 7 oz 111 lb 1 oz - Constitutional no acute distress (conversant) - *Routine HEENT Exam Head: Present: normocephalic Eye: Present: EOMI ENT: Present: mucous membranes moist - *Routine Neck Exam Present: supple. Absent: lymphadenopathy - *Routine Respiratory Exam Present: CTA bilaterally - *Routine Cardiovascular Exam Present: RRR - *Routine Abdominal Exam Present: soft, normoactive bowel sounds, tenderness (only minimal epigastric) - *Routine Extremities Exam Absent: cyanosis, clubbing, edema - *Routine Skin Exam Present: warm. Absent: rash - *Routine Neurological Exam Present: alert, oriented X3 Assessment and Plan (1) Acute abdominal pain Current visit: Yes Status: Acute Category: Medical Code(s): R10.9 - Unspecified abdominal pain (2) Acute pancreatitis Current visit: Yes Status: Acute Category: Medical Code(s): K85.90 - Acute pancreatitis without necrosis or infection, unspecified (3) Duodenal obstruction Current visit: Yes Status: Acute Category: Medical Code(s): K31.5 - Obstruction of duodenum (4) Acute renal insufficiency Current visit: Yes Status: Acute Category: Medical Code(s): N28.9 - Disorder of kidney and ureter, unspecified (5) Hypokalemia Current visit: Yes Status: Acute Category: Medical Code(s): E87.6 - Hypokalemia (6) COPD (chronic obstructive pulmonary disease) Current visit: Yes Status: Acute Category: Medical Code(s): J44.9 - Chronic obstructive pulmonary disease, unspecified (7) Tobacco abuse Current visit: Yes Status: Acute Category: Medical Code(s): Z72.0 - Tobacco use (8) Chronic back pain Current visit: Yes Status: Acute Category: Medical Code(s): M54.9 - Dorsalgia, unspecified; G89.29 - Other chronic pain (9) Chronic mixed headache syndrome Current visit: Yes Status: Acute Category: Medical Code(s): G44.89 - Other headache syndrome (10) Anxiety disorder Current visit: Yes Status: Acute Category: Medical Code(s): F41.9 - Anxiety disorder, unspecified (11) BMI less than 19,adult Current visit: Yes Status: Acute Category: Medical Code(s): Z68.1 - Body mass index (BMI) 19.9 or less, adult (12) SMAS (superior mesenteric artery syndrome) Current visit: Yes Status: Acute Category: Medical Code(s): K55.1 - Chronic vascular disorders of intestine - Assessment and plan all Dx Assessment and Plan for all problems:: Advance diet today.
--- NOTE | 2019-06-22 13:22 | PC.NURSE ---
Pt is alert and oriented and able to make needs known. Respirations are even and unlabored. Lungs cta, pt denies soa. Has c/o of abd pain 9//10 on pain scale. Have given pain meds per apr and ativan per apr r/t pt request for anxiousness. Have educated on use of pain med and need for pain med. Pt has tolerated lunch thus far with full liquid diet and denies nausea/emesis this time. Have encouraged pt to take eating slowly. Have encouraged pt to be up to chair and continue with use of incentive spirometer. NS with 40 meq k cont's per apr at 100 ml//hr. IV site in right upper arm looks good. Will cont to mx this shift. VSS at this time.
[2019-06-22 13:44] VITALS: RESP 16
[2019-06-22 16:00] VITALS: BP 126/66; PULSE 86; RESP 20; TEMP 36.9; O2SAT 100
[2019-06-22 19:33] VITALS: BP 125/70; PULSE 89; RESP 18; TEMP 37.2; O2SAT 100
[2019-06-22 20:00] VITALS: O2SAT 100
[2019-06-23 03:40] VITALS: BP 147/87; PULSE 82; RESP 20; TEMP 36.8; O2SAT 100
[2019-06-23 05:00] VITALS: BMI 18.3
--- NOTE | 2019-06-23 06:37 | PC.NURSE ---
Pt tolerated full liquid diet this shift with no c/o N/V reported. Pt c/o pain to abdomen 10/23- and a headache throughout the shift and medicated per MAR. Pt ambulating independently to BR and voiding clear, yellow urine. IS encouraged often during shift.
[2019-06-23 08:00] VITALS: BP 137/88; PULSE 84; RESP 18; TEMP 36.6; O2SAT 100
--- NOTE | 2019-06-23 08:13 | P.PN_ITS ---
Internal Medicine - PN: Subj *Date: 06/23/19 *Time: 08:13 Interval history: Patient reported a little bloating and nausea after eating yesterday. Exam Vital signs and Labs for Last 24 Hours: Temp Pulse Resp BP Pulse Ox 98.2 F 82 20 147/87 H 100 06/23/19 03:40 06/23/19 03:40 06/23/19 03:40 06/23/19 03:40 06/23/19 03:40 I & O for Last 24 hours: Intake & Output 06/20/19 06/21/19 06/22/19 06/23/19 23:59 23:59 23:59 23:59 Intake Total 4761 / 4811 1739 / 1739 2715 / 2715 1540 / 1540 Output Total 2700 / 2700 2100 / 2100 3000 / 3000 750 / 750 Balance 2060 / 2110 -361 / -361 -285 / -285 790 / 790 Weight 113 lb 6 oz 112 lb 7 oz 111 lb 1 oz 117 lb - Constitutional no acute distress, thin - *Routine HEENT Exam Head: Present: normocephalic Eye: Present: EOMI ENT: Present: mucous membranes moist - *Routine Neck Exam Present: supple. Absent: lymphadenopathy - *Routine Respiratory Exam Present: CTA bilaterally - *Routine Cardiovascular Exam Present: RRR - *Routine Abdominal Exam Present: soft, normoactive bowel sounds. Absent: tenderness - *Routine Extremities Exam Absent: cyanosis, clubbing, edema - *Routine Skin Exam Present: warm. Absent: rash - *Routine Neurological Exam Present: alert, oriented X3 Assessment and Plan (1) Acute abdominal pain Current visit: Yes Status: Acute Category: Medical Code(s): R10.9 - Unspe cified abdominal pain (2) Acute pancreatitis Current visit: Yes Status: Acute Category: Medical Code(s): K85.90 - Acute pancreatitis without necrosis or infection, unspecified (3) Duodenal obstruction Current visit: Yes Status: Acute Category: Medical Code(s): K31.5 - Obstruction of duodenum (4) Acute renal insufficiency Current visit: Yes Status: Acute Category: Medical Code(s): N28.9 - Disorder of kidney and ureter, unspecified (5) Hypokalemia Current visit: Yes Status: Acute Category: Medical Code(s): E87.6 - Hypokalemia (6) COPD (chronic obstructive pulmonary disease) Current visit: Yes Status: Acute Category: Medical Code(s): J44.9 - Chronic obstructive pulmonary disease, unspecified (7) Tobacco abuse Current visit: Yes Status: Acute Category: Medical Code(s): Z72.0 - Tobacco use (8) Chronic back pain Current visit: Yes Status: Acute Category: Medical Code(s): M54.9 - Dorsalgia, unspecified; G89.29 - Other chronic pain (9) Chronic mixed headache syndrome Current visit: Yes Status: Acute Category: Medical Code(s): G44.89 - Other headache syndrome (10) Anxiety disorder Current visit: Yes Status: Acute Category: Medical Code(s): F41.9 - Anxiety disorder, unspecified (11) BMI less than 19,adult Current visit: Yes Status: Acute Category: Medical Code(s): Z68.1 - Body mass index (BMI) 19.9 or less, adult (12) SMAS (superior mesenteric artery syndrome) Current visit: Yes Status: Acute Category: Medical Code(s): K55.1 - Chroni c vascular disorders of intestine - Assessment and plan all Dx Assessment and Plan for all problems:: No change in treatment, continue full liquid diet, recheck labs tomorrow.
--- NOTE | 2019-06-23 09:06 | DIET.NUTRFU ---
Pt with poor tolerance diet advancement. Small frequent feedings may improve tolerance. Dietary will send protein shakes between meals to achieve this and meet energy/protein needs. Please continue to encourage pt to eat slowly.
--- NOTE | 2019-06-23 09:41 | P.PN_ITS ---
Subjective Narrative: Overall patient seems to be tolerating full liquids. He does have some abdominal distention and discomfort after taking in full liquids but this resolves with time. He is moving his bowels. Exam Vital signs and Labs for Last 24 Hours: Temp Pulse Resp BP Pulse Ox 97.9 F 84 18 137/88 100 06/23/19 08:00 06/23/19 08:00 06/23/19 08:00 06/23/19 08:00 06/23/19 08:00 I & O for Last 24 hours: Intake & Output 06/20/19 06/21/19 06/22/19 06/23/19 11:59 11:59 11:59 11:59 Intake Total 2950 / 2950 3610 / 3610 1735 / 1735 3580 / 3580 Output Total 2250 / 2250 3350 / 3350 2050 / 2050 2500 / 2500 Balance 700 / 700 260 / 260 -315 / -315 1080 / 1080 Weight 113 lb 6 oz 112 lb 7 oz 111 lb 1 oz 117 lb - *Routine Abdominal Exam Comments: Mildly distended Progress Note: A&P (1) Acute abdominal pain Status: Acute Current Visit: Yes (2) Acute pancreatitis Status: Acute Current Visit: Yes (3) Duodenal obstruction Status: Acute Current Visit: Yes (4) Acute renal insufficiency Status: Acute Current Visit: Yes (5) Hypokalemia Status: Acute Current Visit: Yes (6) COPD (chronic obstructive pulmonary disease) Status: Acute Current Visit: Yes (7) Tobacco abuse Status: Acute Current Visit: Yes (8) Chronic back pain Status: Acute Current Visit: Yes (9) Chronic mixed headache syndrome Status: Acute Current Visit: Yes (10) Anxiety disorder Status: Acute Current Visit: Yes (11) BMI less than 19,adult Status: Acute Current Visit: Yes (12) SMAS (superior mesenteric artery syndrome) Status: Acute Current Visit: Yes Assessment and Plan for All Diagnoses:: Continue to limit to full liquids today and see how he is able to tolerate this. If patient continues to be able to maintain some degree of oral nutrition and hydration possible discharge tomorrow with very close outpatient follow-up with minimally invasive surgery at [facility] for consultation for possible laparoscopic gastrojejunostomy. However, if patient has recurrent symptoms with increasing abdominal pain and bloating and possible vomiting with full liquids may require transfer for more urgent procedure.
[2019-06-23 16:00] VITALS: BP 131/66; PULSE 92; RESP 18; TEMP 37.2; O2SAT 100
[2019-06-23 19:41] VITALS: BP 108/69; PULSE 88; RESP 16; TEMP 36.8; O2SAT 100
[2019-06-23 20:00] VITALS: O2SAT 100
--- NOTE | 2019-06-24 02:06 | PC.NURSE ---
Pt has maintained his baseline assessment. Pt has requested frequent pain medication. He reports some mild abdominal pain and no nausea. He reports he's been drinking various fluids throughout the night. He's now asleep with call shanks in reach.
[2019-06-24 03:21] VITALS: BP 130/64; PULSE 74; RESP 16; TEMP 37.2; O2SAT 100
[2019-06-24 07:00] VITALS: BMI 17.3
[2019-06-24 07:11] LABS: Basophils # 0.1 K/mm3 (0-0.2); Basophils % 0.6 % (0.1-2.0); Eosinophils # 0.3 K/mm3 (0.0-0.4); Eosinophils % 2.7 % (0.1-12.0); Hematocrit 31.3 % (42.0-52.0); Hemoglobin 9.9 g/dL (14.1-18.0); Lymphocytes # 2.1 K/mm3 (0.7-4.5); Lymphocytes % 22.4 % (10-50); Mean Corpuscular HGB Conc 31.7 g/dL (31.8-35.4); Mean Corpuscular Hemoglobin 33.7 pg (27.0-31.2); Mean Platelet Volume 8.8 fl (7.4-10.4); Monocytes # 0.6 K/mm3 (0.1-1.0); Neutrophils # 6.5 K/mm3 (1.8-7.8); Neutrophils % 68.3 % (37.0-80.0); Platelet Count 329 K/mm3 (142-424); Red Blood Count 2.95 M/mm3 (4.60-6.20); Red Cell Distribution Width 13.6 % (11.5-17.5); White Blood Count 9.5 K/mm3 (4.8-10.8)
[2019-06-24 07:21] LABS: Chloride 111 mmol/L (98-107); Potassium 4.3 mmoL/L (3.5-5.1); Sodium 135 mmol/L (136-145)
[2019-06-24 07:24] LABS: Blood Urea Nitrogen 6 mg/dl (9-20); Creatinine Clearance Estimated 73 mL/min (50-200); Estimated Glomerular Filt Rate 100 ml/min (>60); GFR (African American) 121 ML/MIN (>60)
[2019-06-24 07:25] LABS: Anion Gap 4.3 mEq/L (5-15); Calcium 8.7 mg/dl (8.4-10.2); Carbon Dioxide 24 mmol/L (22.0-30.0); Glucose 92 mg/dl (74-100)
[2019-06-24 08:00] VITALS: BP 137/69; PULSE 74; RESP 16; TEMP 36.8; O2SAT 100
--- NOTE | 2019-06-24 08:02 | HMH.GSPN ---
Subjective Narrative: Patient taking full liquids. Still has some abdominal soreness but he states it is improved. Main complaint is headache. Exam Vital signs and Labs for Last 24 Hours: Temp Pulse Resp BP Pulse Ox 98.9 F 74 16 130/64 100 06/24/19 03:21 06/24/19 03:21 06/24/19 03:21 06/24/19 03:21 06/24/19 03:21 Laboratory Results - last 24 hr 06/24/19 06:27: WBC 9.5, RBC 2.95 L, Hgb 9.9 L, Hct 31.3 L, MCV 106.0 H, MCH 33.7 H, MCHC 31.7 L, RDW 13.6, Plt Count 329, MPV 8.8, Neut % (Auto) 68.3, Lymph % (Auto) 22.4, [place] % (Auto) 6.0, Eos % (Auto) 2.7, Baso % (Auto) 0.6, Neut # (Auto) 6.5, Lymph # (Auto) 2.1, [place] # (Auto) 0.6, Eos # (Auto) 0.3, Baso # (Auto) 0.1 06/24/19 06:27: Sodium 135 L, Potassium 4.3, Chloride 111 H, Carbon Dioxide 24, Anion Gap 4.3 L, BUN 6 L, Creatinine 0.80, Estimated Creat Clear 73, Estimated GFR 100, Est GFR ( Amer) 121, Glucose 92, Calcium 8.7 I & O for Last 24 hours: Intake & Output 06/21/19 06/22/19 06/23/19 06/24/19 11:59 11:59 11:59 11:59 Intake Total 3610 / 3610 1735 / 1735 3680 / 3680 2163 / 2163 Output Total 3350 / 3350 205 / 2049 2500 / 2500 3500 / 3500 Balance 260 / 260 -315 / -315 1180 / 1180 -1337 / -1337 Weight 112 lb 7 oz 111 lb 1 oz 117 lb 110 lb 9 oz - *Routine Abdominal Exam Present: soft Comments: Slightly distended. Progress Note: A&P (1) Acute abdominal pain Status: Acute Current Visit: Yes (2) Acute pancreatitis Status: Acute Current Visit: Yes (3) Duodenal obstruction Status: Acute Assessment and plan: Check abdominal x-ray today. Will discuss with [facility] minimally invasive surgery. If recurrent gastric distension may require transfer vs. close outpatient follow up. Current Visit: Yes (4) Acute renal insufficiency Status: Acute Current Visit: Yes (5) Hypokalemia Status: Acute Current Visit: Yes (6) COPD (chronic obstructive pulmonary disease) Status: Acute Current Visit: Yes (7) Tobacco abuse Status: Acute Current Visit: Yes (8) Chronic back pain Status: Acute Current Visit: Yes (9) Chronic mixed headache syndrome Status: Acute Current Visit: Yes (10) Anxiety disorder Status: Acute Current Visit: Yes (11) BMI less than 19,adult Status: Acute Current Visit: Yes (12) SMAS (superior mesenteric artery syndrome) Status: Acute Current Visit: Yes
--- NOTE | 2019-06-24 08:06 | XR_ITS ---
PROCEDURE: XR ABDOMEN MIN 2V CLINICAL INDICATION: ABDOMINAL DISTENSION, TENDERNESS COMPARISON: FL UPPER GI SMALL BOWEL from 06/18/2019 CT ANGIO ABDOMEN PELVIS from 06/19/2019 FINDINGS: There is some residual contrast noted in the large bowel from recent barium study. Mixture of gas and fluid density noted in the stomach without significant distension radiographically. No acute bony anomalies. IMPRESSION: No acute findings. Dictated by: Shaggy Alexandre MD 06/24/2019 09:30 Electronically signed by Shaggy Alexandre MD in [facility] 06/24/2019 09:30
--- NOTE | 2019-06-24 08:10 | HMH.ACPN2 ---
<Anisha Mohan - Last Filed: 06/24/19 08:10> Internal Medicine - PN: Subj *Date: 06/24/19 *Time: 08:10 Interval history: Patient states he is doing a lot better. He is able to tolerate a full liquid diet but not in large quantities. He is requiring pain medicine [id number] but mostly this is for a headache now. He states this is the worst migraine he has had in a long time. It is lasted for 3 days. He was able to sleep. He has had no vomiting but some nausea requiring Zofran. His bowels have moved. He is voiding QS. He has ambulated in the room. Laboratory data today reveals a white blood cell count of 9500 with a hemoglobin of 9.9 and hematocrit of 31.3. Exam Vital signs and Labs for Last 24 Hours: Temp Pulse Resp BP Pulse Ox 98.9 F 74 16 130/64 100 06/24/19 03:21 06/24/19 03:21 06/24/19 03:21 06/24/19 03:21 06/24/19 03:21 Laboratory Results - last 24 hr 06/24/19 06:27: WBC 9.5, RBC 2.95 L, Hgb 9.9 L, Hct 31.3 L, MCV 106.0 H, MCH 33.7 H, MCHC 31.7 L, RDW 13.6, Plt Count 329, MPV 8.8, Neut % (Auto) 68.3, Lymph % (Auto) 22.4, [place] % (Auto) 6.0, Eos % (Auto) 2.7, Baso % (Auto) 0.6, Neut # (Auto) 6.5, Lymph # (Auto) 2.1, [place] # (Auto) 0.6, Eos # (Auto) 0.3, Baso # (Auto) 0.1 06/24/19 06:27: Sodium 135 L, Potassium 4.3, Chloride 111 H, Carbon Dioxide 24, Anion Gap 4.3 L, BUN 6 L, Creatinine 0.80, Estimated Creat Clear 73, Estimated GFR 100, Est GFR ( Amer) 121, Glucose 92, Calcium 8.7 I & O for Last 24 hours: Intake & Output 06/21/19 06/22/19 06/23/19 06/24/19 11:59 11:59 11:59 11:59 Intake Total 3610 / 3610 1735 / 1735 3680 / 3680 2163 / 2163 Output Total 3350 / 3350 2049 / 2049 2500 / 2500 3500 / 3500 Balance 260 / 260 -315 / -315 1180 / 1180 -1337 / -1337 Weight 112 lb 7 oz 111 lb 1 oz 117 lb 110 lb 9 oz - Constitutional no acute distress Comments: Sitting up in the bed eating his breakfast - *Routine Respiratory Exam Present: CTA bilaterally (Anteriorly and posteriorly) - *Routine Cardiovascular Exam Present: RRR - *Routine Abdominal Exam Present: soft, normoactive bowel sounds, tenderness (He describes his abdomen as being sore). Absent: distended - *Routine Extremities Exam Absent: edema, calf tenderness - *Routine Neurological Exam Present: alert, oriented X3 Assessment and Plan (1) Acute abdominal pain Current visit: Yes Status: Acute Category: Medical Code(s): R10.9 - Unspecified abdominal pain (2) Acute pancreatitis Current visit: Yes Status: Acute Category: Medical Code(s): K85.90 - Acute pancreatitis without necrosis or infection, unspecified (3) Duodenal obstruction Current visit: Yes Status: Acute Category: Medical Code(s): K31.5 - Obstruction of duodenum (4) Acute renal insufficiency Current visit: Yes Status: Acute Category: Medical Code(s): N28.9 - Disorder of kidney and ureter, unspecified (5) Hypokalemia Current visit: Yes Status: Acute Category: Medical Code(s): E87.6 - Hypokalemia (6) COPD (chronic obstructive pulmonary disease) Current visit: Yes Status: Acute Category: Medical Code(s): J44.9 - Chronic obstructive pulmonary disease, unspecified (7) Tobacco abuse Current visit: Yes Status: Acute Category: Medical Code(s): Z72.0 - Tobacco use (8) Chronic back pain Current visit: Yes Status: Acute Category: Medical Code(s): M54.9 - Dorsalgia, unspecified; G89.29 - Other chronic pain (9) Chronic mixed headache syndrome Current visit: Yes Status: Acute Category: Medical Code(s): G44.89 - Other headache syndrome (10) Anxiety disorder Current visit: Yes Status: Acute Category: Medical Code(s): F41.9 - Anxiety disorder, unspecified (11) BMI less than 19,adult Current visit: Yes Status: Acute Category: Medical Code(s): Z68.1 - Body mass index (BMI) 19.9 or less, adult (12) SMAS (superior mesenteric artery syndrome) Current visit: Yes Status
--- NOTE | 2019-06-24 14:27 | PC.NURSE ---
Pt alert and oriented and able to make needs known. Did speak with [facility] this am and give info to SHERIN Tay in [facility] to am VS and negative covid 19 s/s. Pt is going to be transferred there per Dr. López. Have medicated per apr. Have given report to SHERIN Simmons.
--- NOTE | 2019-06-24 15:15 | PC.NURSE ---
[id number] - Spoke to Kristina Chirinos [facility], report given. Pt to go to room 612, admitting to Dr. Perry [id number] - Made [facility] aware of transfer.
[2019-06-24 15:58] VITALS: BP 154/57; PULSE 72; RESP 16; TEMP 36.8; O2SAT 100
--- NOTE | 2019-06-27 13:31 | HMH.DCSUM ---
General - General Admission date:: 06/15/19 Discharge date: 06/24/19 HPI HPI: Mr. Renae is a 58-year-old white male who presented to the emergency room with a 3 to 4-day history of progressively worsening abdominal pain, abdominal distention with nausea and vomiting. He was initially thought to have an acute abdomen. His amylase and lipase was elevated. Urgent CT scan showed stranding around the tail the pancreas consistent with some pancreatitis, but the more impressive finding was marked distention of his stomach with apparent obstruction in the mid duodenum. An NG tube was placed in the emergency room with return of proximately 6 L of gastric contents which markedly relieved his symptoms. Additional pertinent findings on his labs showed an elevated white count of 17,000. BUN and creatinine were elevated. Lactic acid was 4.5. Glucose was elevated at 213. His chest x-ray showed some chronic changes consistent with COPD and evidence of several old rib fractures on the right. He was admitted with continuous NG drainage to low wall suction, IV fluid hydration, pain management and surgical consultation. Mr. Renae lives in [facility] and was visiting with his sister in [place] when his symptoms started. He is disabled from chronic back pain. He has a history of chronic headaches and anxiety. Hospital Course Hospital Course: The patient had a chest CT showing COPD and a linear transverse density in the distal esophagus possibly related to a strand of mucus. There was severe gastric distention along with a fluid-filled esophagus. The patient was more comfortable after having the NG tube inserted. He still had some mid and upper abdominal pain. He had no history of GI problems but did take Prilosec although he was unsure why. He had no history of ulcer disease and no recent weight loss. He was started on IV fluids and his renal insufficiency improved. His potassium was replaced. His pancreatic enzymes improved. Surgery was consulted for possible EGD. He was seen by Dr. Nagy. He wanted to manage nonoperatively and to perform an EGD. He also felt a right upper quadrant ultrasound may be needed as well. He did allow the patient to have a few ice chips and popsicles. He was continued on antiemetics and pain management. His blood cultures returned showing no growth. Dr. López performed an EGD on 06/17/2019 and it showed a patch of severe erosive gastritis high in the cardia possibly secondary to severe gastric distention. Biopsies were obtained. There was no evidence of any gastric outlet obstruction or duodenal obstruction. He recommended the NG tube remain out and allow the patient to have sips and chips. The patient had an upper GI the next day showing a relative outlet obstruction of the third portion of the duodenum with dilatation of the stomach and duodenum up to that point. There was poor gastric and proximal small bowel motility. Radiology felt this could be secondary to SMA syndrome with some component of gastroparesis and they recommended a CT angiogram of the mesenteric vessels and a nuclear medicine gastric emptying scan. The patient continued to require pain medication. His antibiotics were de-escalated. Dr. López ordered a CT angiogram of the abdomen. He had a gallbladder ultrasound as well which showed a contracted gallbladder with thickened pantoja with sludge and some gastric distention. There were no stones. His abdominal CTA showed superior mesenteric artery syndrome. Dr. López felt he likely had some degree of extrinsic compression creating partial distal duodenal obstruction. The patient was started on a liquid diet in the hopes that he could maintain some nutrition with hydration with liquids. Dr. López did feel he may ultimately require referral to a tertiary care facility for consideration of a gastrojejunostomy bypass of the duodenum. He initially tolerated the clear liquids, but then d
== END 2019-06-24 16:05 | disposition short-term general hospital (02) | DRG 380 ==
LOC: ER 14:33 → 2ND 15:23
PROVIDERS: Family Medicine; Internal Medicine Gastroenterology; Surgery; Admitting Provider Family Medicine; Emergency Provider Family Medicine; PCP Family Medicine; Visit Provider Family Medicine
PROC: 0DJ08ZZ Inspection of Upper Intestinal Tract, Via Natural or Artificial Opening Endoscopic (ICD-10-PCS; CPT 43235; principal; 2019-06-17 11:00)
PROC: 0DH63UZ Insertion of Feeding Device into Stomach, Percutaneous Approach (ICD-10-PCS; CPT 43246; principal; 2019-06-21 12:30)
DX: K31.5 Obstruction of duodenum (principal); K85.90 Acute pancreatitis without necrosis or infection, unspecified; K29.01 Acute gastritis with bleeding; R64 Cachexia; E44.1 Mild protein-calorie malnutrition; Z68.1 Body mass index [BMI] 19.9 or less, adult; N17.9 Acute kidney failure, unspecified; K55.1 Chronic vascular disorders of intestine; E87.6 Hypokalemia; G44.89 Other headache syndrome; Z72.0 Tobacco use; J44.9 Chronic obstructive pulmonary disease, unspecified
CPT/HCPCS: 43239; 43235; 36415; 71045; 71250; 74019; 74174; 74176; 74246; 74248; 76705; 80048; 80053; 80305; 81001; 82150; 83605; 83690; 84132; 84484; 85007; 85025; 85651; 86140; 87040; 88305; 88342; 93005; 96365; 96366; 96367; 96372; 96375; 96376; 99285; J1956; J2405; J2543; Q9967